=== PATIENT | male | born 1935 | race Caucasian/White ===

== ENCOUNTER 2020-03-05 11:00 | Inpatient (IN) | payer MEDICARE, OTHER ==
[2020-03-05] MEDS ORDERED: HYDROmorphone 0.5 MG/0.5 ML Syringe ONE (11:05)
[2020-03-05] MEDS ORDERED: Sodium Chloride 0.9% 10 ML Syringe FLUSH PRN (11:15)
[2020-03-05] MEDS ORDERED: HYDROmorphone 0.5 MG/0.5 ML Syringe IVPUSH ONE (11:24)
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
--- NOTE | 2020-03-05 12:21 | CR ---
Pelvis and right hip: AP view of the pelvis was obtained as well as AP and crosstable lateral views of the right hip. Fracture is again seen within the proximal diaphysis of the femur with extension into the inferior intertrochanteric region. Lucency within the subcapital region of the right hip and difficult to exclude nondisplaced subcapital fracture. Degenerative change is partially seen within the spine. Left hip prosthesis is noted. Vascular calcification is seen. Joint space narrowing is noted superiorly within the right hip. Impression: 1. Proximal femoral diaphyseal fracture extending into the inferior intertrochanteric area. 2. Questionable subcapital fracture within the right hip. 3. Other nonacute findings as noted above. Diagnostic code #3 This report was dictated in MDT
--- NOTE | 2020-03-05 12:21 | CR ---
Chest: AP view of the chest was obtained. Comparison: No prior chest imaging. Heart size and mediastinum are within normal limits for AP technique. Lungs are clear with no acute parenchymal change. Degenerative change is partially visualized within the left shoulder. Bony structures are osteopenic. Impression: 1. Nothing acute is appreciated on AP chest x-ray. Diagnostic code #2 This report was dictated in MDT
--- NOTE | 2020-03-05 12:21 | CR ---
Right femur: AP and lateral views of the right femur were obtained. Fracture is identified within the proximal diaphysis of the femur with extension into the lower intertrochanteric region. Lucency within the right femoral neck is noted on the AP view and difficult to exclude subcapital fracture. Osteopenia is noted. Left hip prosthesis is seen. Vascular calcification is noted. Knee prosthesis is seen. Joint space narrowing is seen within the superior right hip. Impression: 1. Fracture within the proximal diaphysis extending into the inferior intertrochanteric region. 2. Lucency within the subcapital region of the right hip and difficult to exclude additional subcapital fracture. 3. Other findings which are nonacute as described above. Diagnostic code #3 This report was dictated in MDT
[2020-03-05] MEDS: Sodium Chloride 0.9% 1,000 ML IV SCH ×2 (12:30→19:43)
--- NOTE | 2020-03-05 13:14 | CR ---
Right tibia and fibula: 2 views of the right tibia and fibula were obtained. Knee prosthesis is noted. Bony structures are osteopenic. No acute fracture or other abnormality is appreciated. Impression: 1. Osteopenia. Knee prosthesis. 2. Nothing acute is appreciated on 2 view right tibia and fibula exam. Diagnostic code #2 Study was dictated in MDT
[2020-03-05] MEDS ORDERED: Acetaminophen 650 MG Supp RECTAL PRN (14:48)
[2020-03-05] MEDS ORDERED: Ondansetron 4 MG/2 ML SDV IV PRN (14:48)
[2020-03-05] MEDS ORDERED: Acetaminophen/oxyCODONE 325-5 MG Tab PO PRN (14:48)
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
[2020-03-05] MEDS ORDERED: Albuterol 6.7 GM Inhaler INH PRN (14:56)
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
[2020-03-05] MEDS: Pantoprazole 40 MG Tab.CR PO SCH (18:00)
[2020-03-05] MEDS: HYDROmorphone 0.5 MG/0.5 ML Syringe IVPUSH PRN ×2 (18:07→21:27)
[2020-03-05] MEDS: Insulin Lispro 100 Units/ML 3 ML Vial SUBCUT SCH (18:37)
[2020-03-05] MEDS: Donepezil 10 MG Tab PO SCH (21:18)
[2020-03-05] MEDS: Memantine 10 MG Tab PO SCH (21:18)
[2020-03-05] MEDS: Docusate Sodium 100 MG Cap PO SCH (21:18)
[2020-03-06] MEDS: Hydrochlorothiazide/Triamterene 25-37.5 MG Cap PO SCH ×2 (00:14→12:54)
[2020-03-06] MEDS: Insulin Lispro 100 Units/ML 3 ML Vial SUBCUT SCH ×5 (02:01→21:06)
[2020-03-06] MEDS: Sodium Chloride 0.9% 1,000 ML IV SCH (02:47)
[2020-03-06] MEDS ORDERED: Levothyroxine 75 MCG Tab PO SCH (06:00)
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
[2020-03-06] MEDS: Rosuvastatin 10 MG Tab PO SCH (08:53)
[2020-03-06] MEDS: Memantine 10 MG Tab PO SCH ×2 (08:53→21:01)
[2020-03-06] MEDS: Pantoprazole 40 MG Tab.CR PO SCH ×2 (08:54→17:21)
[2020-03-06] MEDS: Levothyroxine 75 MCG Tab PO SCH (09:00)
[2020-03-06] MEDS ORDERED: Albuterol 0.083% 2.5 MG/3 ML Neb Soln NEB SCH (09:00)
[2020-03-06] MEDS: Docusate Sodium 100 MG Cap PO SCH ×3 (09:01→21:01)
[2020-03-06] MEDS ORDERED: Bupivacaine 0.25% 10 ML SDV ONE (09:12)
[2020-03-06] MEDS ORDERED: fentaNYL 100 MCG/2 ML SDV ONE (09:27)
[2020-03-06] MEDS ORDERED: Propofol 200 MG/20 ML SDV ONE (09:27)
[2020-03-06] MEDS ORDERED: Midazolam 1 MG/ML 2 ML SDV ONE (09:28)
[2020-03-06] MEDS ORDERED: Lidocaine 1% 4 ML ONE (09:29)
[2020-03-06] MEDS ORDERED: ceFAZolin 1 GM Vial ONE (10:24)
[2020-03-06] MEDS ORDERED: Lactated Ringers 1,000 ML ONE (11:02)
[2020-03-06] MEDS ORDERED: Ondansetron 4 MG/2 ML SDV ONE (11:03)
[2020-03-06] MEDS ORDERED: EPINEPHrine 1 MG/ML SDV ONE (11:13)
--- NOTE | 2020-03-06 11:32 | CR ---
Right hip: 10 fluoroscopic spot views were obtained of the right hip. Study shows compression screw within the femoral head. Additional intramedullary tessy is seen. Stable joint space narrowing within the right hip. Fluoroscopy time given as 84.9 seconds. Impression: 1. Procedural study showing fixation of previous fractures. Diagnostic code #2 Study was dictated in MDT
--- NOTE | 2020-03-06 11:34 | PCM.POSTAN ---
POST ANESTHESIA ASSESSMENT - MENTAL STATUS Mental Status: Alert, Oriented - VITAL SIGNS Vital Signs: Last Vital Signs Temp 97.3 F 03/06/20 11:24 Pulse 104 H 03/06/20 11:24 Resp 14 03/06/20 11:24 BP 136/63 03/06/20 11:24 Pulse Ox 98 03/06/20 11:24 - RESPIRATORY Respiratory Status: Respiratory Rate WNL, Airway Patent, O2 Saturation Stable, Supplemental Oxygen - CARDIOVASCULAR CV Status: Pulse Rate WNL, Blood Pressure Stable - GASTROINTESTINAL GI Status: No Symptoms - PAIN Pain Score: 0 (post SAB) - POST OP HYDRATION Hydration Status: Adequate & Stable
--- NOTE | 2020-03-06 12:18 | CONS ---
CONSULTING PHYSICIAN: Nestor Turner MD DATE OF CONSULTATION: 03/05/2020 HISTORY OF PRESENT ILLNESS: This is an 84-year-old gentleman who is well known to me, who today was out doing something with his dumpster, fell on the right side of the concrete and had immediate right hip pain and was unable to ambulate. EMS was called. The patient was taken to Emergency Department where he was found to have a right intertrochanteric fracture with subtrochanteric extension. He denies any other injury. He does have dementia and was somewhat confused in the emergency department. The patient otherwise denied any other injury, previous pain, or problems to the right hip. PHYSICAL EXAMINATION: GENERAL: The patient is alert. He is fairly confused when I talk to him, but he does recognize me. MUSCULOSKELETAL: On examination of right lower extremity, there is no significant rotation or shortening noted. He has no tenderness to palpation about his previous right total knee. There is no effusion. He does have a small area of ecchymosis over the pretibial region on the right side. He has positive pain with a log roll of the right hip. He has full dorsiflexion, plantar flexion, and great toe extension. He is neurovascularly intact to the medial, plantar, first dorsal webspace with 2+ distal dorsalis pedis posterior tibial pulses. PELVIS: Stable to anterior and posterior compression. RADIOGRAPHS: Reviewed showing a nondisplaced intertrochanteric fracture of the right hip with subtrochanteric extension. PLAN: I discussed with both him and his daughter as durable power of pathology technician that this usually does require surgical fixation. If it does not, the patient will be bed bound with significant pain. If we do fixation with a cephalomedullary nail, the patient will begin to weight bear right away and should have significantly less pain with activities. The risks, benefits, complications, and alternatives were discussed with them at today's visit over the phone and then with the patient directly and they agree with the plan. We will proceed with cephalomedullary nailing of the right femur. MMKIKE /[id number]
--- NOTE | 2020-03-06 12:51 | CR ---
Right femur: 2 views of the right femur were obtained. Comparison: Prior operative study performed earlier on the same day (10:57 AM) and baseline exam of 03/05/20. Findings: Proximal femur fracture is again noted. Compression screw and intramedullary tessy is present. Skin timothy are present. Small amount of soft tissue air is noted from the surgical procedure. Knee prosthesis is seen. Joint space narrowing is stable within the superior right hip. Impression: 1. Orthopedic fixation of previous proximal femur fractures. 2. Other findings as noted above which are stable. Diagnostic code #2 This report was dictated in MDT
[2020-03-06] MEDS: Losartan 25 MG Tab PO SCH (12:55)
[2020-03-06] MEDS ORDERED: Magnesium Sulfate/Water 2 GM in Premix Bag 1 BAG IV ONE (15:00)
[2020-03-06] MEDS: ceFAZolin 2 GM in Premix Bag 1 BAG IV SCH (17:30)
[2020-03-06] MEDS: Donepezil 10 MG Tab PO SCH (20:59)
[2020-03-06] MEDS: Acetaminophen/oxyCODONE 325-5 MG Tab PO PRN (21:02)
[2020-03-07] MEDS: ceFAZolin 2 GM in Premix Bag 1 BAG IV SCH ×2 (02:11→10:58)
[2020-03-07] MEDS: Pantoprazole 40 MG Tab.CR PO SCH ×2 (06:42→17:44)
[2020-03-07] MEDS: Levothyroxine 75 MCG Tab PO SCH (06:42)
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
[2020-03-07] MEDS: Insulin Lispro 100 Units/ML 3 ML Vial SUBCUT SCH ×4 (07:43→22:38)
--- NOTE | 2020-03-07 07:53 | PCM48HPAN ---
Post Anesthesia Note - EVALUATION WITHIN 48HRS OF ANESTHETIC Vital Signs in Normal Range: Yes Patient Participated in Evaluation: Yes (limited participation due to being confused) Respiratory Function Stable: Yes Airway Patent: Yes Cardiovascular Function Stable: Yes Hydration Status Stable: Yes Pain Control Satisfactory: Yes Nausea and Vomiting Control Satisfactory: Yes Mental Status Recovered: Yes (patient is back to his preoperative baseline status, still confused. ) Vital Signs: Last Vital Signs Temp 97.5 F 03/07/20 04:04 Pulse 75 03/07/20 04:08 Resp 16 03/07/20 04:04 BP 136/67 03/07/20 04:04 Pulse Ox 95 03/07/20 04:08 - COMMENTS/OBSERVATIONS Free Text/Narrative:: Patient is on postoperative day 1. Stable but still confused - however within the preoperative baseline
[2020-03-07] MEDS ORDERED: Magnesium Sulfate/Water 4 GM in Premix Bag 1 BAG IV ONE (08:54)
[2020-03-07] MEDS: Acetaminophen/oxyCODONE 325-5 MG Tab PO PRN ×2 (08:59→17:42)
[2020-03-07] MEDS: Docusate Sodium 100 MG Cap PO SCH ×2 (08:59→22:37)
[2020-03-07] MEDS: Losartan 25 MG Tab PO SCH (09:00)
[2020-03-07] MEDS: Memantine 10 MG Tab PO SCH ×2 (09:00→22:37)
[2020-03-07] MEDS: Hydrochlorothiazide/Triamterene 25-37.5 MG Cap PO SCH (09:00)
[2020-03-07] MEDS: Rosuvastatin 10 MG Tab PO SCH (09:00)
[2020-03-07] MEDS: Rivaroxaban 10 MG Tab PO SCH (10:27)
--- NOTE | 2020-03-07 12:11 | PCM.SURGPN ---
- General Info Date of Service: 03/07/20 POD#: 1 Functional Status: Reports: Pain Controlled, Tolerating Diet, Other (Nursing states pt was able to stand and moved to chair. Nursing reports urinary retention and Hospitalist service is monitoring.) - Patient Data Vitals - Most Recent: Last Vital Signs Temp 97.7 F 03/07/20 12:04 Pulse 60 03/07/20 12:04 Resp 15 03/07/20 12:04 BP 158/76 H 03/07/20 12:04 Pulse Ox 94 L 03/07/20 12:04 Weight - Most Recent: 178 lb I&O - Last 24 Hours: Intake & Output 03/06/20 03/07/20 03/07/20 22:59 06:59 14:59 Intake Total 785 150 240 Output Total 600 Balance 785 -450 240 Lab Results Last 24 Hrs: Laboratory Results - last 24 hr 03/06/20 03/06/20 03/06/20 Range/Units 12:58 16:56 20:25 WBC (4.23-9.07) K/mm3 RBC (4.63-6.08) M/mm3 Hgb (13.7-17.5) gm/dl Hct (40.1-51.0) % MCV (79.0-92.2) fl MCH (25.7-32.2) pg MCHC (32.2-35.5) g/dl RDW Std Deviation (35.1-43.9) fL Plt Count (163-337) K/mm3 MPV (9.4-12.3) fl Neut % (Auto) (34.0-67.9) % Lymph % (Auto) (21.8-53.1) % [place] % (Auto) (5.3-12.2) % Eos % (Auto) (0.8-7.0) Baso % (Auto) (0.1-1.2) % Neut # (Auto) (1.78-5.38) K/mm3 Lymph # (Auto) (1.32-3.57) K/mm3 [place] # (Auto) (0.30-0.82) K/mm3 Eos # (Auto) (0.04-0.54) K/mm3 Baso # (Auto) (0.01-0.08) K/mm3 Manual Slide Review Sodium (136-145) mEq/L Potassium (3.5-5.1) mEq/L Chloride (98-107) mEq/L Carbon Dioxide (21-32) mEq/L Anion Gap (5-15) BUN (7-18) mg/dL Creatinine (0.7-1.3) mg/dL Est Cr Clr Drug Dosing mL/min Estimated GFR (MDRD) (>60) mL/min BUN/Creatinine Ratio (14-18) Glucose (83-115) mg/dL POC Glucose 138 H 133 H 207 H (83-110) mg/dL Calcium (8.5-10.1) mg/dL Magnesium (1.8-2.4) mg/dl Total Bilirubin (0.2-1.0) mg/dL AST (15-37) U/L ALT (16-63) U/L Alkaline Phosphatase (46-116) U/L Total Protein (6.4-8.2) g/dl Albumin (3.4-5.0) g/dl Globulin gm/dL Albumin/Globulin Ratio (1-2) 03/07/20 03/07/20 03/07/20 Range/Units 06:39 06:40 06:42 WBC 9.05 (4.23-9.07) K/mm3 RBC 3.79 L (4.63-6.08) M/mm3 Hgb 10.8 L (13.7-17.5) gm/dl Hct 33.8 L (40.1-51.0) % MCV 89.2 (79.0-92.2) fl MCH 28.5 (25.7-32.2) pg MCHC 32.0 L (32.2-35.5) g/dl RDW Std Deviation 42.0 (35.1-43.9) fL Plt Count 109 L (163-337) K/mm3 MPV 12.2 (9.4-12.3) fl Neut % (Auto) 65.4 (34.0-67.9) % Lymph % (Auto) 15.9 L (21.8-53.1) % [place] % (Auto) 17.3 H (5.3-12.2) % Eos % (Auto) 0.9 (0.8-7.0) Baso % (Auto) 0.3 (0.1-1.2) % Neut # (Auto) 5.91 H (1.78-5.38) K/mm3 Lymph # (Auto) 1.44 (1.32-3.57) K/mm3 [place] # (Auto) 1.57 H (0.30-0.82) K/mm3 Eos # (Auto) 0.08 (0.04-0.54) K/mm3 Baso # (Auto) 0.03 (0.01-0.08) K/mm3 Manual Slide Review Normal smear Sodium 142 (136-145) mEq/L Potassium 5.0 (3.5-5.1) mEq/L Chloride 109 H (98-107) mEq/L Carbon Dioxide 23 (21-32) mEq/L Anion Gap 15.0 (5-15) BUN 22 H (7-18) mg/dL Creatinine 1.5 H (0.7-1.3) mg/dL Est Cr Clr Drug Dosing 40.24 mL/min Estimated GFR (MDRD) 45 (>60) mL/min BUN/Creatinine Ratio 14.7 (14-18) Glucose 158 H (83-115) mg/dL POC Glucose 144 H (83-110) mg/dL Calcium 8.3 L (8.5-10.1) mg/dL Magnesium 1.7 L (1.8-2.4) mg/dl Total Bilirubin 0.6 (0.2-1.0) mg/dL AST 18 (15-37) U/L ALT 17 (16-63) U/L Alkaline Phosphatase 91 (46-116) U/L Total Protein 5.9 L (6.4-8.2) g/dl Albumin 2.6 L (3.4-5.0) g/dl Globulin 3.3 gm/dL Albumin/Globulin Ratio 0.8 L (1-2) Med Orders - Current: Current Medications Acetaminophen (Tylenol) 650 mg RECTAL Q4H PRN PRN Reason: Pain (mild 1-3) Albuterol (Proventil Hfa) 0 gm INH Q4H PRN PRN Reason: Dyspnea Docusate Sodium (Colace) 100 mg PO BID [facility] Last Admin: 03/07/20 08:59 Dose: 100 mg Donepezil HCl (Aricept) 5 mg PO BEDTIME [facility] Last Admin: 03/06/20 20:59 Dose: 5 mg Hydromorphone HCl (Dilaudid) 0.5 mg IVPUSH Q2H PRN PRN Reason: Pain (severe 7-10) Last Admin: 03/05/20 21:27 Dose: 0.5 mg Sodium Chloride (Normal Saline) 1,000 mls @ 150 mls/hr IV ASDIRECTED [facility] Last Admin: 03/06/20 02:47 Dose: 150 mls/hr Magnesium Sulfate 4 gm/ Premix 50 mls @ 12.5 mls/hr IV ONETIME ONE Stop: 03/07/20 12:53 Last Admin: 03/07/20 10:59 Dose: 12.5 mls/hr Insulin Human Lispro (Humalog) 0 unit SUBCUT QIDACANDBED [facility]; Protocol Last Admin: 03/07/20 11:49 Dose: 2 units Levothyroxine Sodium (Levothyroxine) 75 mcg PO ACBREAKFAST [facility] Last Admin: 03/07/20 06:42 Dose: 75 mcg Losartan Potassium (Cozaar) 25 mg PO DAILY [facility] Last Admin: 03/07/20 09:00 Dose: 25 mg Memantine (Namenda) 10 mg PO BID [facility] Last Admin: 03/07/20 09:00 Dose: 10 mg Ondansetron HCl (Zofran) 4 mg IV Q6H PRN PRN Reason: Nausea/Vomiting Oxycodone/Acetaminophen (Percocet 325-5 Mg) 1 - 2 tab PO Q4H PRN PRN Reason: Pain (moderate 4-6) Last Admin: 03/07/20 08:59 Dose: 2 tab Pantoprazole Sodium (Protonix) 40 mg PO BIDMEALS [facility] Last Admin: 03/07/20 06:42 Dose: 40 mg Rivaroxaban (Xarelto) 10 mg PO DAILY [facility] Last Admin: 03/07/20 10:27 Dose: 10 mg Rosuvastatin Calcium (Crestor) 20 mg PO DAILY [facility] Last Admin: 03/07/20 09:00 Dose: 20 mg Sodium Chloride (Saline Flush) 10 ml FLUSH ASDIRECTED PRN PRN Reason: Keep Vein Open Last Admin: 03/05/20 11:26 Dose: 10 ml Triamterene/HCTZ (Dyazide 25-37.5 Mg) 1 each PO DAILY [facility] Last Admin: 03/07/20 09:00 Dose: 1 each Discontinued Medications Albuterol (Proventil Neb Soln) 2.5 mg NEB ONETIME [facility] Stop: 03/06/20 11:00 Last Admin: 03/06/20 09:20 Dose: 2.5 mg Bupivacaine HCl (Sensorcaine-Mpf 0.25%) Confirm Administered Dose 30 ml .ROUTE .STK-MED ONE Stop: 03/06/20 09:13 Last Admin: 03/06/20 09:48 Dose: 10 ml Cefazolin Sodium (Ancef) Confirm Administered Dose 2 gm .ROUTE .STK-MED ONE Stop: 03/06/20 10:25 Epinephrine HCl (Adrenalin) Confirm Administered Dose 1 mg .ROUTE .STK-MED ONE Stop: 03/06/20 11:14 Fentanyl (Sublimaze) Confirm Administered Dose 100 mcg .ROUTE .STK-MED ONE Stop: 03/06/20 09:28 Hydromorphone HCl (Dilaudid) Confirm Administered Dose 0.5 mg .ROUTE .STK-MED ONE Stop: 03/05/20 11:06 Last Admin: 03/05/20 11:25 Dose: Not Given Hydromorphone HCl (Dilaudid) 0.5 mg IVPUSH ONETIME ONE Stop: 03/05/20 11:25 Last Admin: 03/05/20 11:11 Dose: 0.5 mg Cefazolin Sodium/Dextrose 2 gm (/ Premix) 50 mls @ 100 mls/hr IV Q8H [facility] Stop: 03/07/20 10:59 Last Admin: 03/07/20 10:58 Dose: 100 mls/hr Lidocaine HCl (Xylocaine-Mpf 1%) Confirm Administered Dose 4 mls @ as directed .ROUTE .STK-MED ONE Stop: 03/06/20 09:30 Magnesium Sulfate 2 gm/ Premix 50 mls @ 25 mls/hr IV ONETIME ONE Stop: 03/06/20 16:59 Last Admin: 03/06/20 14:47 Dose: 25 mls/hr Lactated Ringer's (Ringers, Lactated) Confirm Administered Dose 1,000 mls @ as directed .ROUTE .STK-MED ONE Stop: 03/06/20 11:03 Levothyroxine Sodium (Levothyroxine) 75 mcg PO ACBREAKFAST [facility] Last Admin: 03/07/20 08:05 Dose: Not Given Midazolam HCl (Versed 1 Mg/Ml) Confirm Administered Dose 2 mg .ROUTE .STK-MED ONE Stop: 03/06/20 09:29 Miscellaneous Medication (Phenylephrine 1 Mg/10 Ml-Ns) Confirm Administered Dose 1 mg IV .STK-MED ONE Stop: 03/06/20 10:58 Ondansetron HCl (Zofran) Confirm Administered Dose 4 mg .ROUTE .STK-MED ONE Stop: 03/06/20 11:04 Oxycodone/Acetaminophen (Percocet 325-5 Mg) 1 tab PO Q4H PRN PRN Reason: Pain (moderate 4-6) Last Admin: 03/06/20 14:49 Dose: 1 tab Propofol (Diprivan 20 Ml) Confirm Administered Dose 400 mg .ROUTE .STK-MED ONE Stop: 03/06/20 09:28 - Exam Wound/Incisions: Dressing Dry and Intact General: Alert, Cooperative, Other (Answered questions. ) Extremities: Other (Right thigh soft, nontender. Pt was able to sense light touch at RLE. Portia's negative for RLE.) Sepsis Event Note - Evaluation Sepsis Screening Result: No Definite Risk - Focused Exam Vital Signs: Vital Signs Temp Pulse Resp BP Pulse Ox 03/07/20 12:04 97.7 F 60 15 158/76 H 94 L 03/07/20 09:00 140/53 L 03/07/20 07:58 98.1 F 61 17 140/53 L 96 03/07/20 04:08 75 95 03/07/20 04:04 97.5 F 132 H 16 136/67 95 03/07/20 01:22 84 100 03/07/20 00:28 84 100 03/07/20 00:26 98.4 F 82 16 186/57 H 94 L Date Exam was Performed: 03/07/20 Time Exam was Performed: 12:07 - Problem List Review Problem List Initiated/Reviewed/Updated: Yes - My Orders Last 24 Hours: Active Orders 24 hr Category Date Time Status CBC WITH AUTO DIFF [HEME] AM Lab 03/08/20 05:11 Ordered CBC WITH AUTO DIFF [HEME] AM Lab 03/09/20 05:11 Ordered CMP [COMPREHENSIVE METABOLIC PN,CMP] [CHEM] AM Lab 03/08/20 05:11 Ordered CMP [COMPREHENSIVE METABOLIC PN,CMP] [CHEM] AM Lab 03/09/20 05:11 Ordered MAGNESIUM [CHEM] AM Lab 03/08/20 05:11 Ordered MAGNESIUM [CHEM] AM Lab 03/09/20 05:11 Ordered Acetaminophen/oxyCODONE [Percocet 325-5 MG] Med 03/06/20 17:58 Active 1 - 2 tab PO Q4H PRN Magnesium Sulfate/Water [Magnesium Sulfate in Water Med 03/07/20 08:54 Active Premix] 4 gm Premix Bag 1 bag IV ONETIME Rivaroxaban [Xarelto] Med 03/07/20 09:30 Active 10 mg PO DAILY Weight bearing status [OM.PC] Routine Oth 03/06/20 11:26 Ordered Medication Orders Acetaminophen (Tylenol) 650 mg RECTAL Q4H PRN PRN Reason: Pain (mild 1-3) Albuterol (Proventil Hfa) 0 gm INH Q4H PRN PRN Reason: Dyspnea Docusate Sodium (Colace) 100 mg PO BID [facility] Last Admin: 03/07/20 08:59 Dose: 100 mg Admin: 03/06/20 21:01 Dose: 100 mg Admin: 03/06/20 12:54 Dose: 100 mg Admin: 03/06/20 09:01 Dose: Admin: 03/05/20 21:18 Dose: 100 mg Donepezil HCl (Aricept) 5 mg PO BEDTIME [facility] Last Admin: 03/06/20 20:59 Dose: 5 mg Admin: 03/05/20 21:18 Dose: 5 mg Hydromorphone HCl (Dilaudid) 0.5 mg IVPUSH Q2H PRN PRN Reason: Pain (severe 7-10) Last Admin: 03/05/20 21:27 Dose: 0.5 mg Admin: 03/05/20 18:07 Dose: 0.5 mg Sodium Chloride (Normal Saline) 1,000 mls @ 150 mls/hr IV ASDIRECTED [facility] Last Admin: 03/06/20 02:47 Dose: 150 mls/hr Infusion: 03/06/20 02:38 Dose: 150 mls/hr Admin: 03/05/20 19:43 Dose: 150 mls/hr Infusion: 03/05/20 19:11 Dose: 150 mls/hr Admin: 03/05/20 12:30 Dose: 150 mls/hr Magnesium Sulfate 4 gm/ Premix 50 mls @ 12.5 mls/hr IV ONETIME ONE Stop: 03/07/20 12:53 Last Admin: 03/07/20 10:59 Dose: 12.5 mls/hr Insulin Human Lispro (Humalog) 0 unit SUBCUT QIDACANDBED [facility]; Protocol Last Admin: 03/07/20 11:49 Dose: 2 units Admin: 03/07/20 07:43 Dose: Not Given Admin: 03/06/20 21:06 Dose: 2 units Admin: 03/06/20 17:16 Dose: Not Given Admin: 03/06/20 13:00 Dose: Not Given Admin: 03/06/20 08:55 Dose: Not Given Admin: 03/06/20 02:01 Dose: Not Given Admin: 03/05/20 18:37 Dose: Not Given Levothyroxine Sodium (Levothyroxine) 75 mcg PO ACBREAKFAST [facility] Last Admin: 03/07/20 06:42 Dose: 75 mcg Admin: 03/06/20 09:00 Dose: 75 mcg Losartan Potassium (Cozaar) 25 mg PO DAILY [facility] Last Admin: 03/07/20 09:00 Dose: 25 mg Admin: 03/06/20 12:55 Dose: 25 mg Memantine (Namenda) 10 mg PO BID [facility] Last Admin: 03/07/20 09:00 Dose: 10 mg Admin: 03/06/20 21:01 Dose: 10 mg Admin: 03/06/20 08:53 Dose: 10 mg Admin: 03/05/20 21:18 Dose: 10 mg Ondansetron HCl (Zofran) 4 mg IV Q6H PRN PRN Reason: Nausea/Vomiting Oxycodone/Acetaminophen (Percocet 325-5 Mg) 1 - 2 tab PO Q4H PRN PRN Reason: Pain (moderate 4-6) Last Admin: 03/07/20 08:59 Dose: 2 tab Admin: 03/06/20 21:02 Dose: 2 tab Pantoprazole Sodium (Protonix) 40 mg PO BIDMEALS [facility] Last Admin: 03/07/20 06:42 Dose: 40 mg Admin: 03/06/20 17:21 Dose: 40 mg Admin: 03/06/20 08:54 Dose: 40 mg Admin: 03/05/20 18:00 Dose: 40 mg Rivaroxaban (Xarelto) 10 mg PO DAILY [facility] Last Admin: 03/07/20 10:27 Dose: 10 mg Rosuvastatin Calcium (Crestor) 20 mg PO DAILY [facility] Last Admin: 03/07/20 09:00 Dose: 20 mg Admin: 03/06/20 08:53 Dose: 20 mg Sodium Chloride (Saline Flush) 10 ml FLUSH ASDIRECTED PRN PRN Reason: Keep Vein Open Last Admin: 03/05/20 11:26 Dose: 10 ml Triamterene/HCTZ (Dyazide 25-37.5 Mg) 1 each PO DAILY [facility] Last Admin: 03/07/20 09:00 Dose: 1 each Admin: 03/06/20 12:54 Dose: 1 each Admin: 03/06/20 00:14 Dose: 1 each - Assessment Assessment (Free Text/Narrative):: POD#1 - s/p cephalomedullary tessy placement for right hip fracture - Plan Plan (Free Text/Narrative):: 1. Nursing states pt's family would like pt to d/c to home. Possible [facility] discharge if pt requires additional rehab. 2. Xarelto 10mg PO daily for VTE prophylaxis. This was discussed with Hospitalist service and pharmacy. 3. Mobility as able. WBAT RLE. The pt's case was discussed with Dr. Turner.
--- NOTE | 2020-03-07 13:53 | PCM.OPNOTE ---
- General Post-Op/Procedure Note Date of Surgery/Procedure: 03/06/20 Operative Procedure(s): cephalomedullary nailing of right intertrochanteric hip fracture with subtrochanteric extension Pre Op Diagnosis: right intertrochanteric hip fracture with subtrochanteric extension Post-Op Diagnosis: Same Anesthesia Technique: Local, MAC, Spinal Primary Surgeon: Nestor Turner Anesthesia Provider: Danny Rios Primary Therapist: Mayra Chew EBL in mLs: 20 Complications: None Condition: Good Free Text/Narrative:: Intake & Output 03/06/20 03/07/20 03/07/20 22:59 06:59 14:59 Intake Total 785 150 240 Output Total 600 Balance 785 -450 240
--- NOTE | 2020-03-07 14:29 | OR ---
DATE OF OPERATION: 03/06/2020 SURGEON: Nestor Turner MD OPERATION PERFORMED: Cephalomedullary nailing of right intertrochanteric hip fracture with subtrochanteric extension. PREOPERATIVE DIAGNOSIS: Right intertrochanteric hip fracture with subtrochanteric extension. POSTOPERATIVE DIAGNOSIS: Right intertrochanteric hip fracture with subtrochanteric extension. ANESTHESIA: Local MAC with spinal. ANESTHESIA PROVIDER: Flaquita Cooper. [employer] SUPERVISOR: Mayra Chew PA-C. ESTIMATED BLOOD LOSS: 20 mL. COMPLICATIONS: None. CONDITION: Stable. DESCRIPTION OF PROCEDURE: The patient was identified in the preoperative holding area where proper site was marked, identified by the surgeon. The patient was taken back to the operating theater where after adequate anesthesia, the patient was placed in traction boots and was placed on the traction table. PEG was then placed. All bony prominences were well padded. His right lower extremity had just gross traction applied, no fine traction. The left lower extremity had no traction applied. It was placed in a dependent position. The right hip was then sterilely prepped and draped in the usual sterile fashion. OR time-out was performed. The patient received 2 g IV Ancef. Standard incision was made superior to the greater trochanter. This was taken down through to the IT band and gluteal fascia. Guidepin was then placed in a center-center position of the greater trochanter, and the opening reamer was used for a long Driss gamma nail. Guide wire was then placed all the way down distally to the knee joint, stopping just at the flange of the femoral component. It measured a 400. At this time, I did a reamer size 13 down the shaft and was found to have good cortical chatter. A long gamma nail 400 x 11 was then placed under direct C-arm fluoroscopy. The fracture site was anatomically reduced. I then placed the gamma nail to the point where the guide pin could be placed up into the femoral head for the lag screw. This measured a 100. At this time, the step-reamer was then used up to 100, and the 100 mm lag screw was then placed into the head and neck. The set screw was then placed proximally, and attention was turned distally to perfect circles for 2 static interlock screws distally in the nail. Perfect circles were identified, and then the proximal and then distal screw holes had bicortical screws placed in static fashion. They were found to be an adequate position on both AP and lateral views of fluoroscopy distally. Final films were taken at the hip joint showing the anatomic reduction of the subtrochanteric fracture, and all screws were well placed. Adequate saline was irrigated through all wounds. 2-0 Vicryl was used subcutaneously, 0 Vicryl was used for the IT band and gluteal fascia, and timothy were used for the skin. The patient was placed in a sterile soft dressing and sent to PACU in stable condition. LINDA /[id number]
[2020-03-07] MEDS ORDERED: Tamsulosin 0.4 MG Cap.ER PO ONE (17:30)
[2020-03-07] MEDS: Donepezil 10 MG Tab PO SCH (22:38)
[2020-03-08] MEDS: Acetaminophen/oxyCODONE 325-5 MG Tab PO PRN ×3 (01:23→21:31)
[2020-03-08] MEDS: Levothyroxine 75 MCG Tab PO SCH (06:33)
[2020-03-08] MEDS: Pantoprazole 40 MG Tab.CR PO SCH ×2 (06:35→17:43)
[2020-03-08] MEDS: Hydrochlorothiazide/Triamterene 25-37.5 MG Cap PO SCH (08:10)
[2020-03-08] MEDS: Losartan 25 MG Tab PO SCH (08:10)
[2020-03-08] MEDS: Docusate Sodium 100 MG Cap PO SCH ×2 (08:10→21:31)
[2020-03-08] MEDS: Memantine 10 MG Tab PO SCH ×2 (08:12→21:30)
[2020-03-08] MEDS: Rivaroxaban 10 MG Tab PO SCH (08:12)
[2020-03-08] MEDS: Rosuvastatin 10 MG Tab PO SCH (08:12)
[2020-03-08] MEDS: Insulin Lispro 100 Units/ML 3 ML Vial SUBCUT SCH ×4 (08:12→21:33)
[2020-03-08] MEDS: Tamsulosin 0.4 MG Cap.ER PO SCH (10:00)
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
[2020-03-08] MEDS ORDERED: Magnesium Hydroxide 400 MG/5 ML Susp 30 ML Cup PO ONE (17:30)
[2020-03-08] MEDS: Donepezil 10 MG Tab PO SCH (21:30)
[2020-03-09] MEDS: Pantoprazole 40 MG Tab.CR PO SCH ×2 (06:32→17:48)
[2020-03-09] MEDS: Levothyroxine 75 MCG Tab PO SCH (06:32)
[2020-03-09] MEDS: Insulin Lispro 100 Units/ML 3 ML Vial SUBCUT SCH ×4 (08:44→21:54)
[2020-03-09] MEDS: Rosuvastatin 10 MG Tab PO SCH (08:45)
[2020-03-09] MEDS: Acetaminophen/oxyCODONE 325-5 MG Tab PO PRN ×2 (08:45→14:28)
[2020-03-09] MEDS: Memantine 10 MG Tab PO SCH ×2 (08:45→21:52)
[2020-03-09] MEDS: Losartan 25 MG Tab PO SCH (08:45)
[2020-03-09] MEDS: Docusate Sodium 100 MG Cap PO SCH ×2 (08:45→21:52)
[2020-03-09] MEDS: Hydrochlorothiazide/Triamterene 25-37.5 MG Cap PO SCH (08:46)
[2020-03-09] MEDS: Rivaroxaban 10 MG Tab PO SCH (08:46)
[2020-03-09] MEDS: Tamsulosin 0.4 MG Cap.ER PO SCH ×2 (08:47→09:29)
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
[2020-03-09] MEDS ORDERED: Bisacodyl 10 MG Supp RECTAL ONE (21:00)
[2020-03-09] MEDS: Donepezil 10 MG Tab PO SCH (21:52)
[2020-03-09] MEDS: Insulin Glarg,Human.Rec.Analog 100 Unit/ML SUBCUT SCH (21:52)
[2020-03-10] MEDS ORDERED: Acetaminophen 325 MG Tab PO PRN (02:27)
[2020-03-10] MEDS: Pantoprazole 40 MG Tab.CR PO SCH ×2 (06:36→17:44)
[2020-03-10] MEDS: Levothyroxine 75 MCG Tab PO SCH (06:36)
[2020-03-10] MEDS: Insulin Lispro 100 Units/ML 3 ML Vial SUBCUT SCH ×4 (08:44→21:21)
[2020-03-10] MEDS: Docusate Sodium 100 MG Cap PO SCH ×2 (09:07→21:25)
[2020-03-10] MEDS: Rosuvastatin 10 MG Tab PO SCH (09:07)
[2020-03-10] MEDS: Tamsulosin 0.4 MG Cap.ER PO SCH (09:08)
[2020-03-10] MEDS: Losartan 25 MG Tab PO SCH (09:08)
[2020-03-10] MEDS: Hydrochlorothiazide/Triamterene 25-37.5 MG Cap PO SCH (09:08)
[2020-03-10] MEDS: Rivaroxaban 10 MG Tab PO SCH (09:08)
[2020-03-10] MEDS: Memantine 10 MG Tab PO SCH ×2 (09:08→21:25)
[2020-03-10] MEDS ORDERED: Lactated Ringers 500 ML IV ONE (09:09)
[2020-03-10] MEDS ORDERED: Lactated Ringers 1,000 ML ONE (09:15)
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
[2020-03-10] MEDS ORDERED: Lactated Ringers 1,000 ML IV SCH ×2 (11:00→11:30)
--- NOTE | 2020-03-10 11:20 | PCM.SURGPN ---
- General Info Date of Service: 03/10/20 POD#: 4 Functional Status: Reports: Pain Controlled, Tolerating Diet, Other ( Hospitalist service reports hypotension noted. Suspect d/c to [facility] tomorrow.) - Patient Data Vitals - Most Recent: Last Vital Signs Temp 97.5 F 03/10/20 02:35 Pulse 91 03/10/20 02:35 Resp 16 03/10/20 02:35 BP 88/43 L 03/10/20 09:08 Pulse Ox 94 L 03/10/20 02:35 Weight - Most Recent: 180 lb 4.8 oz I&O - Last 24 Hours: Intake & Output 03/09/20 03/10/20 03/10/20 22:59 06:59 14:59 Intake Total 800 200 240 Output Total 850 Balance 800 -650 240 Lab Results Last 24 Hrs: Laboratory Results - last 24 hr 03/08/20 03/09/20 03/09/20 Range/Units 11:40 17:44 21:50 WBC (4.23-9.07) K/mm3 RBC (4.63-6.08) M/mm3 Hgb (13.7-17.5) gm/dl Hct (40.1-51.0) % MCV (79.0-92.2) fl MCH (25.7-32.2) pg MCHC (32.2-35.5) g/dl RDW Std Deviation (35.1-43.9) fL Plt Count (163-337) K/mm3 MPV (9.4-12.3) fl Neut % (Auto) (34.0-67.9) % Lymph % (Auto) (21.8-53.1) % [place] % (Auto) (5.3-12.2) % Eos % (Auto) (0.8-7.0) Baso % (Auto) (0.1-1.2) % Neut # (Auto) (1.78-5.38) K/mm3 Lymph # (Auto) (1.32-3.57) K/mm3 [place] # (Auto) (0.30-0.82) K/mm3 Eos # (Auto) (0.04-0.54) K/mm3 Baso # (Auto) (0.01-0.08) K/mm3 Sodium (136-145) mEq/L Potassium (3.5-5.1) mEq/L Chloride (98-107) mEq/L Carbon Dioxide (21-32) mEq/L Anion Gap (5-15) BUN (7-18) mg/dL Creatinine (0.7-1.3) mg/dL Est Cr Clr Drug Dosing mL/min Estimated GFR (MDRD) (>60) mL/min BUN/Creatinine Ratio (14-18) Glucose (83-115) mg/dL POC Glucose 245 H 306 H (83-110) mg/dL Calcium (8.5-10.1) mg/dL Magnesium (1.8-2.4) mg/dl Total Bilirubin (0.2-1.0) mg/dL AST (15-37) U/L ALT (16-63) U/L Alkaline Phosphatase (46-116) U/L Troponin I (0.00-0.056) ng/mL Total Protein (6.4-8.2) g/dl Albumin (3.4-5.0) g/dl Globulin gm/dL Albumin/Globulin Ratio (1-2) COVID-19 PCR Not detected (NOT DETECT) 03/10/20 03/10/20 Range/Units 09:35 09:35 WBC 11.33 H (4.23-9.07) K/mm3 RBC 3.47 L (4.63-6.08) M/mm3 Hgb 10.0 L (13.7-17.5) gm/dl Hct 31.0 L (40.1-51.0) % MCV 89.3 (79.0-92.2) fl MCH 28.8 (25.7-32.2) pg MCHC 32.3 (32.2-35.5) g/dl RDW Std Deviation 40.9 (35.1-43.9) fL Plt Count 177 (163-337) K/mm3 MPV 10.8 (9.4-12.3) fl Neut % (Auto) 78.2 H (34.0-67.9) % Lymph % (Auto) 10.8 L (21.8-53.1) % [place] % (Auto) 9.9 (5.3-12.2) % Eos % (Auto) 0.6 L (0.8-7.0) Baso % (Auto) 0.3 (0.1-1.2) % Neut # (Auto) 8.87 H (1.78-5.38) K/mm3 Lymph # (Auto) 1.22 L (1.32-3.57) K/mm3 [place] # (Auto) 1.12 H (0.30-0.82) K/mm3 Eos # (Auto) 0.07 (0.04-0.54) K/mm3 Baso # (Auto) 0.03 (0.01-0.08) K/mm3 Sodium 136 (136-145) mEq/L Potassium 5.4 H (3.5-5.1) mEq/L Chloride 103 (98-107) mEq/L Carbon Dioxide 24 (21-32) mEq/L Anion Gap 14.4 (5-15) BUN 40 H (7-18) mg/dL Creatinine 2.0 H (0.7-1.3) mg/dL Est Cr Clr Drug Dosing 30.18 mL/min Estimated GFR (MDRD) 32 (>60) mL/min BUN/Creatinine Ratio 20.0 H (14-18) Glucose 243 H (83-115) mg/dL POC Glucose (83-110) mg/dL Calcium 9.0 (8.5-10.1) mg/dL Magnesium 1.8 (1.8-2.4) mg/dl Total Bilirubin 0.9 (0.2-1.0) mg/dL AST 22 (15-37) U/L ALT 21 (16-63) U/L Alkaline Phosphatase 99 (46-116) U/L Troponin I < 0.017 (0.00-0.056) ng/mL Total Protein 6.0 L (6.4-8.2) g/dl Albumin 2.5 L (3.4-5.0) g/dl Globulin 3.5 gm/dL Albumin/Globulin Ratio 0.7 L (1-2) COVID-19 PCR (NOT DETECT) Med Orders - Current: Current Medications Acetaminophen (Tylenol) 650 mg RECTAL Q4H PRN PRN Reason: Pain (mild 1-3) Acetaminophen (Tylenol) 650 mg PO Q4H PRN PRN Reason: Pain Last Admin: 03/10/20 02:49 Dose: 650 mg Albuterol (Proventil Hfa) 0 gm INH Q4H PRN PRN Reason: Dyspnea Docusate Sodium (Colace) 100 mg PO BID ON LICENSE OF [facility] Last Admin: 03/10/20 09:07 Dose: 100 mg Donepezil HCl (Aricept) 5 mg PO BEDTIME ON LICENSE OF [facility] Last Admin: 03/09/20 21:52 Dose: 5 mg Hydrochlorothiazide (Hydrochlorothiazide) 25 mg PO DAILY ON LICENSE OF [facility] Hydromorphone HCl (Dilaudid) 0.5 mg IVPUSH Q2H PRN PRN Reason: Pain (severe 7-10) Last Admin: 03/05/20 21:27 Dose: 0.5 mg Lactated Ringer's (Ringers, Lactated) 1,000 mls @ 75 mls/hr IV ASDIRECTED ON LICENSE OF [facility] Insulin Glargine (Lantus) 7 unit SUBCUT BEDTIME ON LICENSE OF [facility] Last Admin: 03/09/20 21:52 Dose: 7 units Insulin Human Lispro (Humalog) 0 unit SUBCUT QIDACANDBED ON LICENSE OF [facility]; Protocol Last Admin: 03/10/20 08:44 Dose: 1 units Levothyroxine Sodium (Levothyroxine) 75 mcg PO ACBREAKFAST ON LICENSE OF [facility] Last Admin: 03/10/20 06:36 Dose: 75 mcg Losartan Potassium (Cozaar) 25 mg PO DAILY ON LICENSE OF [facility] Last Admin: 03/10/20 09:08 Dose: Not Given Memantine (Namenda) 10 mg PO BID ON LICENSE OF [facility] Last Admin: 03/10/20 09:08 Dose: 10 mg Ondansetron HCl (Zofran) 4 mg IV Q6H PRN PRN Reason: Nausea/Vomiting Oxycodone/Acetaminophen (Percocet 325-5 Mg) 1 - 2 tab PO Q4H PRN PRN Reason: Pain (moderate 4-6) Last Admin: 03/09/20 14:28 Dose: 2 tab Pantoprazole Sodium (Protonix) 40 mg PO BIDMEALS ON LICENSE OF [facility] Last Admin: 03/10/20 06:36 Dose: 40 mg Rivaroxaban (Xarelto) 10 mg PO DAILY ON LICENSE OF [facility] Last Admin: 03/10/20 09:08 Dose: 10 mg Rosuvastatin Calcium (Crestor) 20 mg PO DAILY ON LICENSE OF [facility] Last Admin: 03/10/20 09:07 Dose: 20 mg Sodium Chloride (Saline Flush) 10 ml FLUSH ASDIRECTED PRN PRN Reason: Keep Vein Open Last Admin: 03/05/20 11:26 Dose: 10 ml Tamsulosin HCl (Flomax) 0.4 mg PO PCBREAKFAST ON LICENSE OF [facility] Last Admin: 03/10/20 09:08 Dose: 0.4 mg Discontinued Medications Albuterol (Proventil Neb Soln) 2.5 mg NEB ONETIME ARNIE Stop: 03/06/20 11:00 Last Admin: 03/06/20 09:20 Dose: 2.5 mg Bisacodyl (Dulcolax) 10 mg RECTAL ONETIME ONE Stop: 03/09/20 21:01 Last Admin: 03/09/20 21:52 Dose: 10 mg Bupivacaine HCl (Sensorcaine-Mpf 0.25%) Confirm Administered Dose 30 ml .ROUTE .STK-MED ONE Stop: 03/06/20 09:13 Last Admin: 03/06/20 09:48 Dose: 10 ml Cefazolin Sodium (Ancef) Confirm Administered Dose 2 gm .ROUTE .STK-MED ONE Stop: 03/06/20 10:25 Epinephrine HCl (Adrenalin) Confirm Administered Dose 1 mg .ROUTE .STK-MED ONE Stop: 03/06/20 11:14 Fentanyl (Sublimaze) Confirm Administered Dose 100 mcg .ROUTE .STK-MED ONE Stop: 03/06/20 09:28 Hydromorphone HCl (Dilaudid) Confirm Administered Dose 0.5 mg .ROUTE .STK-MED ONE Stop: 03/05/20 11:06 Last Admin: 03/05/20 11:25 Dose: Not Given Hydromorphone HCl (Dilaudid) 0.5 mg IVPUSH ONETIME ONE Stop: 03/05/20 11:25 Last Admin: 03/05/20 11:11 Dose: 0.5 mg Sodium Chloride (Normal Saline) 1,000 mls @ 150 mls/hr IV ASDIRECTED ARNIE Last Admin: 03/06/20 02:47 Dose: 150 mls/hr Cefazolin Sodium/Dextrose 2 gm (/ Premix) 50 mls @ 100 mls/hr IV Q8H ON LICENSE OF [facility] Stop: 03/07/20 10:59 Last Admin: 03/07/20 10:58 Dose: 100 mls/hr Lidocaine HCl (Xylocaine-Mpf 1%) Confirm Administered Dose 4 mls @ as directed .ROUTE .STK-MED ONE Stop: 03/06/20 09:30 Magnesium Sulfate 2 gm/ Premix 50 mls @ 25 mls/hr IV ONETIME ONE Stop: 03/06/20 16:59 Last Admin: 03/06/20 14:47 Dose: 25 mls/hr Lactated Ringer's (Ringers, Lactated) Confirm Administered Dose 1,000 mls @ as directed .ROUTE .STK-MED ONE Stop: 03/06/20 11:03 Magnesium Sulfate 4 gm/ Premix 50 mls @ 12.5 mls/hr IV ONETIME ONE Stop: 03/07/20 12:53 Last Admin: 03/07/20 10:59 Dose: 12.5 mls/hr Lactated Ringer's (Ringers, Lactated) 500 mls @ 999 mls/hr IV .BOLUS ONE Stop: 03/10/20 09:39 Last Admin: 03/10/20 09:20 Dose: 999 mls/hr Lactated Ringer's (Ringers, Lactated) Confirm Administered Dose 1,000 mls @ as directed .ROUTE .STK-MED ONE Stop: 03/10/20 09:16 Last Admin: 03/10/20 09:21 Dose: Not Given Levothyroxine Sodium (Levothyroxine) 75 mcg PO ACBREAKFAST ARNIE Last Admin: 03/07/20 08:05 Dose: Not Given Magnesium Hydroxide (Milk Of Magnesia) 30 ml PO ONETIME ONE Stop: 03/08/20 17:31 Last Admin: 03/08/20 17:43 Dose: 30 ml Midazolam HCl (Versed 1 Mg/Ml) Confirm Administered Dose 2 mg .ROUTE .STK-MED ONE Stop: 03/06/20 09:29 Miscellaneous Medication (Phenylephrine 1 Mg/10 Ml-Ns) Confirm Administered Dose 1 mg IV .STK-MED ONE Stop: 03/06/20 10:58 Ondansetron HCl (Zofran) Confirm Administered Dose 4 mg .ROUTE .STK-MED ONE Stop: 03/06/20 11:04 Oxycodone/Acetaminophen (Percocet 325-5 Mg) 1 tab PO Q4H PRN PRN Reason: Pain (moderate 4-6) Last Admin: 03/06/20 14:49 Dose: 1 tab Propofol (Diprivan 20 Ml) Confirm Administered Dose 400 mg .ROUTE .STK-MED ONE Stop: 03/06/20 09:28 Tamsulosin HCl (Flomax) 0.4 mg PO ONETIME ONE Stop: 03/07/20 17:31 Last Admin: 03/07/20 17:44 Dose: 0.4 mg Triamterene/HCTZ (Dyazide 25-37.5 Mg) 1 each PO DAILY ON LICENSE OF [facility] Last Admin: 03/10/20 09:08 Dose: Not Given - Exam Wound/Incisions: Dressing Dry and Intact, Other (Min shadowing at superior portion of incision.) General: Alert, Cooperative, No Acute Distress Extremities: Other (Right thigh soft. Right calf nontender. Pt was able to sense touch at RLE.) Sepsis Event Note - Evaluation Sepsis Screening Result: No Definite Risk - Focused Exam Vital Signs: Vital Signs Temp Pulse Resp BP Pulse Ox 03/10/20 09:08 88/43 L 03/10/20 02:35 97.5 F 91 16 159/79 H 94 L Date Exam was Performed: 03/10/20 Time Exam was Performed: 11:15 - Problem List Review Problem List Initiated/Reviewed/Updated: Yes - My Orders Last 24 Hours: Active Orders 24 hr Category Date Time Status Patient Status [ADT] Routine ADT 03/10/20 09:10 Active Dressing Change [Wound Care] [RC] ASDIRECTED Care 03/10/20 11:14 Ordered Acetaminophen [Tylenol] Med 03/10/20 02:27 Active 650 mg PO Q4H PRN Insulin Glarg,Human.Rec.Analog [LantUS] Med 03/09/20 21:00 Active 7 unit SUBCUT BEDTIME Lactated Ringers [Ringers, Lactated] 1,000 ml Med 03/10/20 11:00 Active IV ASDIRECTED hydroCHLOROthiazide Med 03/11/20 09:00 Active 25 mg PO DAILY Medication Orders Acetaminophen (Tylenol) 650 mg RECTAL Q4H PRN PRN Reason: Pain (mild 1-3) Acetaminophen (Tylenol) 650 mg PO Q4H PRN PRN Reason: Pain Last Admin: 03/10/20 02:49 Dose: 650 mg Albuterol (Proventil Hfa) 0 gm INH Q4H PRN PRN Reason: Dyspnea Docusate Sodium (Colace) 100 mg PO BID ON LICENSE OF [facility] Last Admin: 03/10/20 09:07 Dose: 100 mg Admin: 03/09/20 21:52 Dose: 100 mg Admin: 03/09/20 08:45 Dose: 100 mg Admin: 03/08/20 21:31 Dose: 100 mg Admin: 03/08/20 08:10 Dose: 100 mg Admin: 03/07/20 22:37 Dose: 100 mg Admin: 03/07/20 08:59 Dose: 100 mg Admin: 03/06/20 21:01 Dose: 100 mg Admin: 03/06/20 12:54 Dose: 100 mg Admin: 03/06/20 09:01 Dose: Admin: 03/05/20 21:18 Dose: 100 mg Donepezil HCl (Aricept) 5 mg PO BEDTIME ON LICENSE OF [facility] Last Admin: 03/09/20 21:52 Dose: 5 mg Admin: 03/08/20 21:30 Dose: 5 mg Admin: 03/07/20 22:38 Dose: 5 mg Admin: 03/06/20 20:59 Dose: 5 mg Admin: 03/05/20 21:18 Dose: 5 mg Hydrochlorothiazide (Hydrochlorothiazide) 25 mg PO DAILY ON LICENSE OF [facility] Hydromorphone HCl (Dilaudid) 0.5 mg IVPUSH Q2H PRN PRN Reason: Pain (severe 7-10) Last Admin: 03/05/20 21:27 Dose: 0.5 mg Admin: 03/05/20 18:07 Dose: 0.5 mg Lactated Ringer's (Ringers, Lactated) 1,000 mls @ 75 mls/hr IV ASDIRECTED ON LICENSE OF [facility] Insulin Glargine (Lantus) 7 unit SUBCUT BEDTIME ON LICENSE OF [facility] Last Admin: 03/09/20 21:52 Dose: 7 units Insulin Human Lispro (Humalog) 0 unit SUBCUT QIDACANDBED ON LICENSE OF [facility]; Protocol Last Admin: 03/10/20 08:44 Dose: 1 units Admin: 03/09/20 21:54 Dose: 4 units Admin: 03/09/20 17:48 Dose: 2 units Admin: 03/09/20 11:03 Dose: 3 units Admin: 03/09/20 08:44 Dose: 1 units Admin: 03/08/20 21:33 Dose: 2 units Admin: 03/08/20 17:04 Dose: 2 units Admin: 03/08/20 12:10 Dose: 2 units Admin: 03/08/20 08:12 Dose: 2 units Admin: 03/07/20 22:38 Dose: 2 units Admin: 03/07/20 17:44 Dose: 2 units Admin: 03/07/20 11:49 Dose: 2 units Admin: 03/07/20 07:43 Dose: Not Given Admin: 03/06/20 21:06 Dose: 2 units Admin: 03/06/20 17:16 Dose: Not Given Admin: 03/06/20 13:00 Dose: Not Given Admin: 03/06/20 08:55 Dose: Not Given Admin: 03/06/20 02:01 Dose: Not Given Admin: 03/05/20 18:37 Dose: Not Given Levothyroxine Sodium (Levothyroxine) 75 mcg PO ACBREAKFAST ON LICENSE OF [facility] Last Admin: 03/10/20 06:36 Dose: 75 mcg Admin: 03/09/20 06:32 Dose: 75 mcg Admin: 03/08/20 06:33 Dose: 75 mcg Admin: 03/07/20 06:42 Dose: 75 mcg Admin: 03/06/20 09:00 Dose: 75 mcg Losartan Potassium (Cozaar) 25 mg PO DAILY ON LICENSE OF [facility] Last Admin: 03/10/20 09:08 Dose: Admin: 03/09/20 08:45 Dose: 25 mg Admin: 03/08/20 08:10 Dose: 25 mg Admin: 03/07/20 09:00 Dose: 25 mg Admin: 03/06/20 12:55 Dose: 25 mg Memantine (Namenda) 10 mg PO BID ON LICENSE OF [facility] Last Admin: 03/10/20 09:08 Dose: 10 mg Admin: 03/09/20 21:52 Dose: 10 mg Admin: 03/09/20 08:45 Dose: 10 mg Admin: 03/08/20 21:30 Dose: 10 mg Admin: 03/08/20 08:12 Dose: 10 mg Admin: 03/07/20 22:37 Dose: 10 mg Admin: 03/07/20 09:00 Dose: 10 mg Admin: 03/06/20 21:01 Dose: 10 mg Admin: 03/06/20 08:53 Dose: 10 mg Admin: 03/05/20 21:18 Dose: 10 mg Ondansetron HCl (Zofran) 4 mg IV Q6H PRN PRN Reason: Nausea/Vomiting Oxycodone/Acetaminophen (Percocet 325-5 Mg) 1 - 2 tab PO Q4H PRN PRN Reason: Pain (moderate 4-6) Last Admin: 03/09/20 14:28 Dose: 2 tab Admin: 03/09/20 08:45 Dose: 2 tab Admin: 03/08/20 21:31 Dose: 2 tab Admin: 03/08/20 08:10 Dose: 2 tab Admin: 03/08/20 01:23 Dose: 2 tab Admin: 03/07/20 17:42 Dose: 2 tab Admin: 03/07/20 08:59 Dose: 2 tab Admin: 03/06/20 21:02 Dose: 2 tab Pantoprazole Sodium (Protonix) 40 mg PO BIDMEALS ON LICENSE OF [facility] Last Admin: 03/10/20 06:36 Dose: 40 mg Admin: 03/09/20 17:48 Dose: 40 mg Admin: 03/09/20 06:32 Dose: 40 mg Admin: 03/08/20 17:43 Dose: 40 mg Admin: 03/08/20 06:35 Dose: 40 mg Admin: 03/07/20 17:44 Dose: 40 mg Admin: 03/07/20 06:42 Dose: 40 mg Admin: 03/06/20 17:21 Dose: 40 mg Admin: 03/06/20 08:54 Dose: 40 mg Admin: 03/05/20 18:00 Dose: 40 mg Rivaroxaban (Xarelto) 10 mg PO DAILY ON LICENSE OF [facility] Last Admin: 03/10/20 09:08 Dose: 10 mg Admin: 03/09/20 08:46 Dose: 10 mg Admin: 03/08/20 08:12 Dose: 10 mg Admin: 03/07/20 10:27 Dose: 10 mg Rosuvastatin Calcium (Crestor) 20 mg PO DAILY ON LICENSE OF [facility] Last Admin: 03/10/20 09:07 Dose: 20 mg Admin: 03/09/20 08:45 Dose: 20 mg Admin: 03/08/20 08:12 Dose: 20 mg Admin: 03/07/20 09:00 Dose: 20 mg Admin: 03/06/20 08:53 Dose: 20 mg Sodium Chloride (Saline Flush) 10 ml FLUSH ASDIRECTED PRN PRN Reason: Keep Vein Open Last Admin: 03/05/20 11:26 Dose: 10 ml Tamsulosin HCl (Flomax) 0.4 mg PO PCBREAKFAST ARNIE Last Admin: 03/10/20 09:08 Dose: 0.4 mg Admin: 03/09/20 09:29 Dose: Admin: 03/09/20 08:47 Dose: 0.4 mg Admin: 03/08/20 10:00 Dose: 0.4 mg - Assessment Assessment (Free Text/Narrative):: POD#4 - cephalomedullary tessy placement for right hip fracture - Plan Plan (Free Text/Narrative):: 1. Xarelto x 35 days total. 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 2. Discharge to [place] likely tomorrow. Pt will benefit from continued rehabilitation. 3. WBAT RLE. 4. Further orders per Hospitalist service. The pt's case was discussed with Dr. Turner.
[2020-03-10] MEDS: Acetaminophen/oxyCODONE 325-5 MG Tab PO PRN (14:49)
[2020-03-10] MEDS: Donepezil 10 MG Tab PO SCH (21:25)
[2020-03-10] MEDS: Insulin Glarg,Human.Rec.Analog 100 Unit/ML SUBCUT SCH (21:26)
[2020-03-11] MEDS: Levothyroxine 75 MCG Tab PO SCH (06:18)
[2020-03-11] MEDS: Pantoprazole 40 MG Tab.CR PO SCH (06:18)
[2020-03-11 08:08] VITALS: BP 141/64; PULSE 51
[2020-03-11] MEDS: Insulin Lispro 100 Units/ML 3 ML Vial SUBCUT SCH ×2 (08:29→11:50)
[2020-03-11] MEDS: Rivaroxaban 10 MG Tab PO SCH (08:31)
[2020-03-11] MEDS: Memantine 10 MG Tab PO SCH (08:32)
[2020-03-11] MEDS: Docusate Sodium 100 MG Cap PO SCH (08:32)
[2020-03-11] MEDS: Rosuvastatin 10 MG Tab PO SCH (08:32)
[2020-03-11] MEDS: Losartan 25 MG Tab PO SCH (08:32)
[2020-03-11] MEDS ORDERED: Magnesium Sulfate/Water 2 GM in Premix Bag 1 BAG IV ONE (08:47)
[2020-03-11] MEDS ORDERED: Hydrochlorothiazide 25 MG Tab PO SCH (09:00)
[2020-03-11] MEDS: Tamsulosin 0.4 MG Cap.ER PO SCH (10:10)
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
== END 2020-03-11 13:07 | DRG 481 ==
LOC: JD.ED 11:00 → JD.MS 14:10
PROVIDERS: ADMIT Family Medicine; ATTEND Family Medicine
PROC: 0QS636Z Reposition Right Upper Femur with Intramedullary Internal Fixation Device, Percutaneous Approach (ICD-10-PCS; principal; 2020-03-06)
DX: S72.91XA Unspecified fracture of right femur, initial encounter for closed fracture (principal); W18.39XA Other fall on same level, initial encounter; Y92.007 Garden or yard of unspecified non-institutional (private) residence as the place of occurrence of the external cause; S72.144A Nondisplaced intertrochanteric fracture of right femur, initial encounter for closed fracture; E78.00 Pure hypercholesterolemia, unspecified; N17.9 Acute kidney failure, unspecified; W19.XXXA Unspecified fall, initial encounter; E78.5 Hyperlipidemia, unspecified; I10 Essential (primary) hypertension; J45.909 Unspecified asthma, uncomplicated; G47.30 Sleep apnea, unspecified; E11.9 Type 2 diabetes mellitus without complications; K21.9 Gastro-esophageal reflux disease without esophagitis; Z96.651 Presence of right artificial knee joint; Z96.642 Presence of left artificial hip joint; Z79.82 Long term (current) use of aspirin; Z79.890 Hormone replacement therapy; F03.90 Unspecified dementia, unspecified severity, without behavioral disturbance, psychotic disturbance, mood disturbance, and anxiety; Z11.59 Encounter for screening for other viral diseases; E03.9 Hypothyroidism, unspecified; R41.3 Other amnesia; E11.69 Type 2 diabetes mellitus with other specified complication; M89.49 Other hypertrophic osteoarthropathy, multiple sites; E83.42 Hypomagnesemia; I95.89 Other hypotension; E86.1 Hypovolemia; R33.9 Retention of urine, unspecified; Z87.442 Personal history of urinary calculi; Z86.718 Personal history of other venous thrombosis and embolism; Z79.899 Other long term (current) drug therapy
CPT/HCPCS: 36415; 71045; 73502; 73552; 73590; 80053; 85025; 85610; 86850; 86870; 86900; 86901; 93005; 96360; 96361; 99285; J1170; J7030; 01230; 51701; 51702; 51798; 76000; 76000-26; 80048; 82962; 83735; 84484; 87641; 93010; 94640; 97110-GO; 97110-GP; 97116-GP; 97162-GP; 97165-GO; 97530-GO; 97530-GP; 97535-GO; 99222; 99231; 99232; 99239; 99284; A9270-GY; C1713; J0171; J0690; J1815-GY; J2001; J2250; J2370; J2405; J2704; J3010; J3475; J3490; J7120; U0002

== ENCOUNTER 2020-03-12 07:04 | Emergency (ER) | payer MEDICARE, OTHER ==
--- NOTE | 2020-03-12 07:24 | EDM.PDOC ---
ED HPI GENERAL MEDICAL PROBLEM - General Chief Complaint: General Stated Complaint: [facility] Time Seen by Provider: 03/12/20 07:09 Source of Information: Reports: EMS, Retirement Records History Limitations: Reports: Altered Mental Status - History of Present Illness INITIAL COMMENTS - FREE TEXT/NARRATIVE: The patient presents [facility] because he was not responding. [facility] arrived at the [facility] yesterday from [facility] hospital. He was here for a right hip fracture and repair. He went to the [facility] to recover. He is getting percocet for pain. He was up at 3am to go to the bathroom. He did that with assistance and he was alert then. They checked on him this morning and he was not responding. He had a pulse and he was breathing. He has pinpoint pupils. I am not sure at this time when his last percocet was. The intermediate will be sending his records. Onset: Gradual Duration: Hour(s): Improves with: Reports: None Worsens with: Reports: None Associated Symptoms: Reports: No Other Symptoms - Related Data Allergies Allergy/AdvReac Type Severity Reaction Status Date / Time No Known Allergies Allergy Verified 03/05/20 16:31 Home Meds: Home Meds Albuterol Sulfate [Proair Hfa] 2 puff INH Q4HR PRN 03/05/20 [History] Atropine/Diphenoxylate [Diphenoxylate-Atropine] 2 tab PO QID PRN 03/05/20 [ History] Coconut Oil 1 cap PO DAILY 03/05/20 [History] Donepezil [Aricept] 5 mg PO BEDTIME 03/05/20 [History] Fluticasone Propionate [Flonase] 1 spray NASBOTH BID 03/05/20 [History] Glimepiride 1 mg PO DAILY 03/05/20 [History] Hydrocortisone [Hydrocortisone 2.5% Crm] 1 dose TOP BID 03/05/20 [History] Levothyroxine 75 mcg PO DAILY 03/05/20 [History] Losartan [Cozaar] 25 mg PO DAILY 03/05/20 [History] Memantine HCl [Namenda] 10 mg PO BID 03/05/20 [History] Multivitamin with Minerals [Multivitamins with Minerals] 1 tab PO DAILY [History] [place]-3 Fatty Acids/Fish Oil [Fish Oil 1,000 mg Softgel] 1,000 mg PO DAILY 03/05 [History] Omeprazole 20 mg PO BID 03/05/20 [History] Rosuvastatin [Crestor] 20 mg PO DAILY 03/05/20 [History] Acetaminophen [Tylenol] 650 mg PO Q4H PRN #30 tablet 03/11/20 [Rx] Acetaminophen/oxyCODONE [Percocet 325-5 MG] 1 - 2 tab PO Q4H PRN #40 tablet [Rx] Docusate Sodium [Colace] 100 mg PO BID #30 cap 03/11/20 [Rx] Rivaroxaban [Xarelto] 10 mg PO DAILY #30 tablet 03/11/20 [Rx] Tamsulosin [Flomax] 0.4 mg PO PCBREAKFAST #20 cap.er 03/11/20 [Rx] hydroCHLOROthiazide [Hydrochlorothiazide] 25 mg PO DAILY #20 tablet 03/11/20 [Rx ] traMADol [Ultram] 50 - 100 mg PO Q6H PRN #30 tab 03/12/20 [Rx] Past Medical History HEENT History: Reports: Cataract Cardiovascular History: Reports: Blood Clots/VTE/DVT, High Cholesterol, Hypertension Respiratory History: Reports: Asthma, Sleep Apnea Gastrointestinal History: Reports: GERD Other Gastrointestinal History: gallstones Other Genitourinary History: kidney stone Other Neuro History: dementia, memory loss Endocrine/Metabolic History: Reports: Diabetes, Type II, Hypothyroidism - Infectious Disease History Infectious Disease History: Reports: Chicken Pox, Measles, Mumps - Past Surgical History Musculoskeletal Surgical History: Reports: Knee Replacement, Other (See Below) Other Musculoskeletal Surgeries/Procedures:: left hip replacement, left knee replacement Social & Family History - Family History Family Medical History: Noncontributory - Caffeine Use Caffeine Use: Reports: None ED ROS GENERAL - Review of Systems Review Of Systems: See Below Constitutional: Reports: No Symptoms HEENT: Reports: No Symptoms Respiratory: Reports: No Symptoms Cardiovascular: Reports: No Symptoms Endocrine: Reports: No Symptoms GI/Abdominal: Reports: No Symptoms : Reports: No Symptoms Musculoskeletal: Reports: No Symptoms Skin: Reports: No Symptoms Neurological: Reports: Other (Responding to verbal stimuli) ED EXAM, GENERAL - Physical Exam Exam: See Below Exam Limited By: Altered Mental Status General Appearance: No Apparent Distress, Lethargic Eye Exam: Bilateral Eye: Other (Pupils are pinpoint and not reactive) Ears: Normal External Exam Nose: Normal Inspection Head: Atraumatic, Normocephalic Neck: Normal Inspection Respiratory/Chest: No Respiratory Distress, Lungs Clear, Normal Breath Sounds Cardiovascular: Regular Rate, Rhythm, No Edema, No Murmur GI/Abdominal: Soft, Non-Tender, No Organomegaly, No Mass Back Exam: Normal Inspection Extremities: Normal Inspection Neurological: Other (Sleepy. He will follow some commands and he said no when asked if he was cold) Course - Vital Signs Last Recorded V/S: Last Vital Signs Temp 97.0 F 03/12/20 07:04 Pulse 76 03/12/20 07:04 Resp 16 03/12/20 07:04 BP 155/52 H 03/12/20 07:04 Pulse Ox 96 03/12/20 07:04 - Orders/Labs/Meds Orders: Active Orders 24 hr Category Date Time Status Cardiac Monitoring [RC] . DIRECTED Care 03/12/20 07:23 Active Labs: Laboratory Tests 03/12/20 03/12/20 03/12/20 Range/Units 07:19 07:35 07:35 WBC 11.34 H (4.23-9.07) K/mm3 RBC 3.25 L (4.63-6.08) M/mm3 Hgb 9.3 L (13.7-17.5) gm/dl Hct 29.2 L (40.1-51.0) % MCV 89.8 (79.0-92.2) fl MCH 28.6 (25.7-32.2) pg MCHC 31.8 L (32.2-35.5) g/dl RDW Std Deviation 41.3 (35.1-43.9) fL Plt Count 198 (163-337) K/mm3 MPV 10.9 (9.4-12.3) fl Neut % (Auto) 77.2 H (34.0-67.9) % Lymph % (Auto) 11.1 L (21.8-53.1) % [place] % (Auto) 10.4 (5.3-12.2) % Eos % (Auto) 0.6 L (0.8-7.0) Baso % (Auto) 0.4 (0.1-1.2) % Neut # (Auto) 8.76 H (1.78-5.38) K/mm3 Lymph # (Auto) 1.26 L (1.32-3.57) K/mm3 [place] # (Auto) 1.18 H (0.30-0.82) K/mm3 Eos # (Auto) 0.07 (0.04-0.54) K/mm3 Baso # (Auto) 0.04 (0.01-0.08) K/mm3 Manual Slide Review Normal smear Sodium 141 (136-145) mEq/L Potassium 4.5 (3.5-5.1) mEq/L Chloride 104 (98-107) mEq/L Carbon Dioxide 26 (21-32) mEq/L Anion Gap 15.5 H (5-15) BUN 52 H (7-18) mg/dL Creatinine 2.0 H (0.7-1.3) mg/dL Est Cr Clr Drug Dosing 30.18 mL/min Estimated GFR (MDRD) 32 (>60) mL/min BUN/Creatinine Ratio 26.0 H (14-18) Glucose 185 H (83-115) mg/dL POC Glucose 178 H (83-110) mg/dL Calcium 8.7 (8.5-10.1) mg/dL Total Bilirubin 1.0 (0.2-1.0) mg/dL AST 54 H (15-37) U/L ALT 48 (16-63) U/L Alkaline Phosphatase 99 (46-116) U/L Total Protein 5.8 L (6.4-8.2) g/dl Albumin 2.4 L (3.4-5.0) g/dl Globulin 3.4 gm/dL Albumin/Globulin Ratio 0.7 L (1-2) Meds: Medications Discontinued Medications Generic Name Dose Route Start Last Admin Trade Name Freq PRN Reason Stop Dose Admin Sodium Chloride 500 mls @ 1,000 mls/hr 03/12/20 08:12 Normal Saline IV 03/12/20 08:41 .BOLUS ONE - Re-Assessments/Exams Free Text/Narrative Re-Assessment/Exam: 03/12/20 08:17 I will hold off on narcan at this time. I will get some labs and observe him for awhile. 03/12/20 08:19 His bedside glucose was 178. His WBC was elevated at 11.34. His Hgb was 9.3. His Hgb was around 10.8 yesterday. His creatinine is elevated at 2. It was 1.7 yesterday. His glucose is 185. His AST was 54. I will give him 500mls of fluid and observe him for awhile. 03/12/20 09:30 It appears he was to sedated due to the percocet. I will switch him to ultram. Departure - Departure Time of Disposition: :40 Disposition: Home, Self-Care 01 Condition: Good Clinical Impression: Renal insufficiency Opioid overdose Qualifiers: Encounter type: initial encounter Injury intent: accidental or unintentional Qualified Code(s): T40.2X1A - Poisoning by other opioids, accidental ( unintentional), initial encounter - Discharge Information *PRESCRIPTION DRUG MONITORING PROGRAM REVIEWED*: Not Applicable *COPY OF PRESCRIPTION DRUG MONITORING REPORT IN PATIENT VAISHALI: Not Applicable Prescriptions: traMADol [Ultram] 50 - 100 mg PO Q6H PRN #30 tab PRN Reason: Pain Referrals: Jaguar Caldwell MD [Primary Care Provider] - 1 Week Forms: ED Department Discharge Additional Instructions: Stop the percocet and switch to ultram. Take 1 to 2 pills every 6 hours as needed for pain. Take the rest of your medications as prescribed. Please return if you are worse. Sepsis Event Note - Focused Exam Vital Signs: Vital Signs Temp Pulse Resp BP Pulse Ox 03/12/20 07:04 97.0 F 76 16 155/52 H 96 Date Exam was Performed: 03/12/20 Time Exam was Performed: 09:30 - My Orders Last 24 Hours: My Active Orders 03/12/20 07:23 Cardiac Monitoring [RC] . DIRECTED - Assessment/Plan Last 24 Hours: My Active Orders 03/12/20 07:23 Cardiac Monitoring [RC] . DIRECTED
[2020-03-12 07:26] VITALS: PULSE 76
[2020-03-12] MEDS ORDERED: Sodium Chloride 0.9% 500 ML IV ONE (08:12)
[2020-03-12 11:00] VITALS: BP 169/75
== END 2020-03-12 10:47 | disposition home or self-care (01) ==
LOC: JD.ED 07:04
DX: T40.2X1A Poisoning by other opioids, accidental (unintentional), initial encounter (principal); N28.9 Disorder of kidney and ureter, unspecified; I10 Essential (primary) hypertension; E11.9 Type 2 diabetes mellitus without complications; E78.00 Pure hypercholesterolemia, unspecified; J45.909 Unspecified asthma, uncomplicated; K21.9 Gastro-esophageal reflux disease without esophagitis; E03.9 Hypothyroidism, unspecified; Z86.718 Personal history of other venous thrombosis and embolism; Z79.899 Other long term (current) drug therapy; Z79.01 Long term (current) use of anticoagulants; Z79.84 Long term (current) use of oral hypoglycemic drugs
CPT/HCPCS: 36415; 80053; 82962; 85025; 99284; J7030

== ENCOUNTER 2020-09-07 20:45 | Emergency (ER) | payer MEDICARE, OTHER ==
[2020-09-07 20:55] VITALS: BP 146/89; PULSE 114
[2020-09-07] MEDS ORDERED: Sodium Chloride 0.9% 10 ML Syringe FLUSH PRN (21:19)
[2020-09-07] MEDS ORDERED: Albuterol 6.7 GM Inhaler INH ONE (21:21)
--- NOTE | 2020-09-07 21:55 | EDM.PDOC ---
ED HPI GENERAL MEDICAL PROBLEM - General Chief Complaint: Respiratory Problem Stated Complaint: [facility] Time Seen by Provider: 09/07/20 20:53 Source of Information: Reports: Patient, [facility] Records History Limitations: Reports: No Limitations - History of Present Illness INITIAL COMMENTS - FREE TEXT/NARRATIVE: The patient presents by [facility] for hypoxia, cough, and COVID 19 infection. The patient was diagnosed last week. He has a fever, chills, cough, congestion, runny nose, shortness of breath, and generalized weakness. He could not get up on his own today. He has a history of asthma, DVT and he is on xarelto, HTN, hypercholesterolemia, sleep apnea, diabetes type II, renal disease, dementia and hypothyroidism. He comes to us from [facility] where they have had a few COVID 10 positives. Onset: Gradual Duration: Week(s): Severity: Moderate Improves with: Reports: None Worsens with: Reports: None Associated Symptoms: Reports: Cough, Fever/Chills, Shortness of Breath. Denies: Chest Pain, Headaches, Nausea/Vomiting - Related Data Allergies Allergy/AdvReac Type Severity Reaction Status Date / Time No Known Allergies Allergy Verified 09/07/20 21:11 Home Meds: Home Meds Atropine/Diphenoxylate [Diphenoxylate-Atropine] 2 tab PO QID PRN 03/05/20 [History] Donepezil [Aricept] 10 mg PO BEDTIME 03/05/20 [History] Fluticasone Propionate [Flonase] 1 spray NASBOTH BID 03/05/20 [History] Glimepiride 1 mg PO DAILY 03/05/20 [History] Levothyroxine 75 mcg PO DAILY 03/05/20 [History] Memantine HCl [Namenda] 10 mg PO BID 03/05/20 [History] Omeprazole 20 mg PO BID 03/05/20 [History] Rosuvastatin [Crestor] 20 mg PO DAILY 03/05/20 [History] Rivaroxaban [Xarelto] 10 mg PO DAILY #30 tablet 03/11/20 [Rx] Tamsulosin [Flomax] 0.4 mg PO PCBREAKFAST #20 cap.er 03/11/20 [Rx] Acetaminophen/oxyCODONE [Percocet 325-5 MG] 325 mg PO TID PRN 09/07/20 [History] Albuterol Sulfate [Proair Hfa] 2 puff IH Q4H PRN 09/07/20 [History] Past Medical History HEENT History: Reports: Allergic Rhinitis, Cataract Cardiovascular History: Reports: Blood Clots/VTE/DVT, High Cholesterol, Hypertension Other Cardiovascular History: venous thrombosis and embolism. Atherosclerotic heart disease. Respiratory History: Reports: Asthma, Sleep Apnea Gastrointestinal History: Reports: GERD, Other (See Below) Other Gastrointestinal History: gallstones Genitourinary History: Reports: Acute Renal Failure, BPH Other Genitourinary History: kidney stone, Musculoskeletal History: Reports: Other (See Below) Other Musculoskeletal History: R femur fx Other Neuro History: dementia, memory loss Psychiatric History: Reports: Dementia Other Psychiatric History: (I48.372)--cognitive communication deficit. Endocrine/Metabolic History: Reports: Diabetes, Type II, Hypothyroidism - Infectious Disease History Infectious Disease History: Reports: Novel Coronavirus - Past Surgical History Musculoskeletal Surgical History: Reports: Knee Replacement, Other (See Below) Other Musculoskeletal Surgeries/Procedures:: left hip replacement, left knee replacement Social & Family History - Family History Family Medical History: Noncontributory - Tobacco Use Smoking Status *Q: Never Smoker - Caffeine Use Caffeine Use: Reports: Coffee ED ROS GENERAL - Review of Systems Review Of Systems: See Below Constitutional: Reports: Fever, Chills, Malaise, Weakness, Fatigue HEENT: Reports: No Symptoms Respiratory: Reports: Shortness of Breath, Cough Cardiovascular: Reports: No Symptoms Endocrine: Reports: No Symptoms GI/Abdominal: Reports: No Symptoms : Reports: No Symptoms ED EXAM, GENERAL - Physical Exam Exam: See Below Exam Limited By: No Limitations General Appearance: Alert, No Apparent Distress Ears: Normal External Exam Nose: Normal Inspection Head: Atraumatic, Normocephalic Neck: Normal Inspection Respiratory/Chest: No Respiratory Distress, Decreased Breath Sounds, Rhonchi, Wheezing Cardiovascular: Regular Rate, Rhythm, No Edema, No Murmur GI/Abdominal: Soft, Non-Tender, No Organomegaly, No Mass Back Exam: Normal Inspection Extremities: Normal Inspection Course - Vital Signs Last Recorded V/S: Last Vital Signs Temp 99.9 F 09/07/20 20:51 Pulse 114 H 09/07/20 20:51 Resp 30 H 09/07/20 20:51 BP 146/89 H 09/07/20 20:51 Pulse Ox 92 L 09/07/20 21:19 - Orders/Labs/Meds Orders: Active Orders 24 hr Category Date Time Status Cardiac Monitoring [RC] . DIRECTED Care 09/07/20 21:19 Active Oxygen Therapy [RC] PRN Care 09/07/20 21:19 Active Peripheral IV Care [RC] . DIRECTED Care 09/07/20 21:20 Active RT Post Treatment Assessment [RC] Click to Edit Care 09/07/20 21:21 Active RT Pre-Treatment Assessment [RC] Click to Edit Care 09/07/20 21:21 Active Chest 1V Frontal [CR] Stat Exams 09/07/20 21:20 Taken CULTURE BLOOD [BC] Stat Lab 09/07/20 21:50 Received CULTURE BLOOD [BC] Stat Lab 09/07/20 22:00 Received Sodium Chloride 0.9% [Saline Flush] Med 09/07/20 21:19 Active 10 ml FLUSH ASDIRECTED PRN Blood Culture x2 Reflex Set [OM.PC] Stat Oth 09/07/20 21:20 Ordered Peripheral IV Insertion Adult [OM.PC] Stat Oth 09/07/20 21:19 Ordered Medication Orders Sodium Chloride (Saline Flush) 10 ml FLUSH ASDIRECTED PRN PRN Reason: Keep Vein Open Last Admin: 09/07/20 21:41 Dose: 10 ml Documented by: MARISSA Labs: Laboratory Tests 09/07/20 09/07/20 09/07/20 Range/Units 20:57 20:57 20:57 WBC 10.59 H (4.23-9.07) K/mm3 RBC 4.53 L (4.63-6.08) M/mm3 Hgb 13.0 L D (13.7-17.5) gm/dl Hct 39.2 L (40.1-51.0) % MCV 86.5 D (79.0-92.2) fl MCH 28.7 (25.7-32.2) pg MCHC 33.2 (32.2-35.5) g/dl RDW Std Deviation 45.0 H (35.1-43.9) fL Plt Count 274 D (163-337) K/mm3 MPV 11.5 (9.4-12.3) fl Neut % (Auto) 74.3 H (34.0-67.9) % Lymph % (Auto) 16.0 L (21.8-53.1) % Saline % (Auto) 8.9 (5.3-12.2) % Eos % (Auto) 0.3 L (0.8-7.0) Baso % (Auto) 0.4 (0.1-1.2) % Neut # (Auto) 7.88 H (1.78-5.38) K/mm3 Lymph # (Auto) 1.69 (1.32-3.57) K/mm3 Saline # (Auto) 0.94 H (0.30-0.82) K/mm3 Eos # (Auto) 0.03 L (0.04-0.54) K/mm3 Baso # (Auto) 0.04 (0.01-0.08) K/mm3 Manual Slide Review Normal smear PT 14.0 H (9.7-11.7) SECONDS INR 1.32 APTT 34 H (22-31) SECONDS D-Dimer, Quantitative 0.56 H (0.19-0.50) mg/L Puncture Site ABG pH (7.35-7.45) ABG pCO2 (35.0-45.0) mmHg ABG pO2 (80.0-100.0) mmHg ABG HCO3 (22.0-26.0) meq/L ABG O2 Saturation (96.0-97.0) % ABG Base Excess (-2-2.0) Yousif Test A-a Gradient mmHg O2 Delivery Device Oxygen Flow Rate FiO2 (21.00-100.00) % Sodium 142 (136-145) mEq/L Potassium 4.2 (3.5-5.1) mEq/L Chloride 105 (98-107) mEq/L Carbon Dioxide 23 (21-32) mEq/L Anion Gap 18.2 H (5-15) BUN 34 H (7-18) mg/dL Creatinine 2.1 H (0.7-1.3) mg/dL Est Cr Clr Drug Dosing TNP Estimated GFR (MDRD) 30 (>60) mL/min BUN/Creatinine Ratio 16.2 (14-18) Glucose 191 H (83-115) mg/dL Lactic Acid (0.4-2.0) mmol/L Calcium 8.3 L (8.5-10.1) mg/dL Ferritin (26-388) ng/ml Total Bilirubin 0.8 (0.2-1.0) mg/dL AST 93 H (15-37) U/L ALT 109 H (16-63) U/L Alkaline Phosphatase 114 (46-116) U/L Lactate Dehydrogenase 206 (85-227) U/L C-Reactive Protein 16.4 H* (<1.0) mg/dL Total Protein 6.3 L (6.4-8.2) g/dl Albumin 2.2 L (3.4-5.0) g/dl Globulin 4.1 gm/dL Albumin/Globulin Ratio 0.5 L (1-2) 09/07/20 09/07/20 09/07/20 Range/Units 20:57 21:37 22:00 WBC (4.23-9.07) K/mm3 RBC (4.63-6.08) M/mm3 Hgb (13.7-17.5) gm/dl Hct (40.1-51.0) % MCV (79.0-92.2) fl MCH (25.7-32.2) pg MCHC (32.2-35.5) g/dl RDW Std Deviation (35.1-43.9) fL Plt Count (163-337) K/mm3 MPV (9.4-12.3) fl Neut % (Auto) (34.0-67.9) % Lymph % (Auto) (21.8-53.1) % Saline % (Auto) (5.3-12.2) % Eos % (Auto) (0.8-7.0) Baso % (Auto) (0.1-1.2) % Neut # (Auto) (1.78-5.38) K/mm3 Lymph # (Auto) (1.32-3.57) K/mm3 Saline # (Auto) (0.30-0.82) K/mm3 Eos # (Auto) (0.04-0.54) K/mm3 Baso # (Auto) (0.01-0.08) K/mm3 Manual Slide Review PT (9.7-11.7) SECONDS INR APTT (22-31) SECONDS D-Dimer, Quantitative (0.19-0.50) mg/L Puncture Site Lt radial ABG pH 7.50 H (7.35-7.45) ABG pCO2 29.2 L (35.0-45.0) mmHg ABG pO2 75.0 L (80.0-100.0) mmHg ABG HCO3 22.3 (22.0-26.0) meq/L ABG O2 Saturation 91.6 L (96.0-97.0) % ABG Base Excess 0.4 (-2-2.0) Yousif Test Positive A-a Gradient 145 mmHg O2 Delivery Device Nasal cannula Oxygen Flow Rate 4.0 FiO2 36.00 (21.00-100.00) % Sodium (136-145) mEq/L Potassium (3.5-5.1) mEq/L Chloride (98-107) mEq/L Carbon Dioxide (21-32) mEq/L Anion Gap (5-15) BUN (7-18) mg/dL Creatinine (0.7-1.3) mg/dL Est Cr Clr Drug Dosing Estimated GFR (MDRD) (>60) mL/min BUN/Creatinine Ratio (14-18) Glucose (83-115) mg/dL Lactic Acid 1.3 (0.4-2.0) mmol/L Calcium (8.5-10.1) mg/dL Ferritin 254 (26-388) ng/ml Total Bilirubin (0.2-1.0) mg/dL AST (15-37) U/L ALT (16-63) U/L Alkaline Phosphatase (46-116) U/L Lactate Dehydrogenase (85-227) U/L C-Reactive Protein (<1.0) mg/dL Total Protein (6.4-8.2) g/dl Albumin (3.4-5.0) g/dl Globulin gm/dL Albumin/Globulin Ratio (1-2) Meds: Medications Generic Name Dose Route Start Last Admin Trade Name Freq PRN Reason Stop Dose Admin Sodium Chloride 10 ml 09/07/20 21:19 09/07/20 21:41 Saline Flush FLUSH 10 ml ASDIRECTED PRN Administration Keep Vein Open Discontinued Medications Generic Name Dose Route Start Last Admin Trade Name Freq PRN Reason Stop Dose Admin Albuterol 0 gm 09/07/20 21:21 09/07/20 22:29 Proventil Hfa INH 09/07/20 21:22 2 puff ONETIME ONE Administration Dexamethasone 10 mg 09/07/20 22:31 09/07/20 22:55 Dexamethasone IVPUSH 09/07/20 22:32 10 mg ONETIME ONE Administration Sodium Chloride 500 mls @ 1,000 mls/hr 09/07/20 22:35 09/07/20 22:56 Normal Saline IV 09/07/20 23:04 1,000 mls/hr .BOLUS ONE Administration - Re-Assessments/Exams Free Text/Narrative Re-Assessment/Exam: 09/07/20 21:56 I ordered an IV saline lock, oxygen, labs, ABG, blood cultures, lactic acid and a CXR. I do not see any infiltrates on his CXR. His WBC was slightly elevated at 10.59. His D-dimer was slightly elevated at 0.56 consistent with the COVID 19 infection. His pH is elevated at 0.56. His pCO2 is low at 29. His pO2 is a little low at 75. His creatinine is elevated at 2.1. That appears to be at or near his baseline. His glucose was 191. His AST was elevated at 93. His ALT is 109. His LDH is negative. His CRP is 16.4. 09/07/20 23:14 I feel he needs to be admitted. We have no beds here. I called both [facility] and [facility] and they are both full. I called [facility] in [facility] and talked with Dr Christine the hospitalist clinical application manager and he accepted the patient. He wanted me to give the patient dexamethasone 10mg IV. I have ordered that. The patient will have to fly to [place]. Local ambulance would take over 4 hours and they have been overwhelmed. I did call the patient's daughter and talked with her. His wishes are to be full code at this time. Departure - Departure Time of Disposition: 23:20 Disposition: DC/Tfer to Acute Hospital 02 Condition: Serious Clinical Impression: COVID-19, Hypoxia, Renal insufficiency - Discharge Information Referrals: Jaguar Caldwell MD [Primary Care Provider] - Forms: ED Department Discharge Sepsis Event Note (ED) - Evaluation Sepsis Screening Result: Possible Sepsis Risk - Focused Exam Vital Signs: Vital Signs Temp Pulse Resp BP Pulse Ox Pulse Ox 09/07/20 21:19 92 L 09/07/20 20:51 99.9 F 114 H 30 H 146/89 H 85 L - My Orders Last 24 Hours: My Active Orders 09/07/20 21:19 Cardiac Monitoring [RC] . DIRECTED Oxygen Therapy [RC] PRN Sodium Chloride 0.9% [Saline Flush] 10 ml FLUSH ASDIRECTED PRN Peripheral IV Insertion Adult [OM.PC] Stat 09/07/20 21:20 Peripheral IV Care [RC] . DIRECTED Chest 1V Frontal [CR] Stat Blood Culture x2 Reflex Set [OM.PC] Stat 09/07/20 21:21 RT Post Treatment Assessment [RC] Click to Edit RT Pre-Treatment Assessment [RC] Click to Edit 09/07/20 21:50 CULTURE BLOOD [BC] Stat 09/07/20 22:00 CULTURE BLOOD [BC] Stat - Assessment/Plan Last 24 Hours: My Active Orders 09/07/20 21:19 Cardiac Monitoring [RC] . DIRECTED Oxygen Therapy [RC] PRN Sodium Chloride 0.9% [Saline Flush] 10 ml FLUSH ASDIRECTED PRN Peripheral IV Insertion Adult [OM.PC] Stat 09/07/20 21:20 Peripheral IV Care [RC] . DIRECTED Chest 1V Frontal [CR] Stat Blood Culture x2 Reflex Set [OM.PC] Stat 09/07/20 21:21 RT Post Treatment Assessment [RC] Click to Edit RT Pre-Treatment Assessment [RC] Click to Edit 09/07/20 21:50 CULTURE BLOOD [BC] Stat 09/07/20 22:00 CULTURE BLOOD [BC] Stat
[2020-09-07] MEDS ORDERED: Dexamethasone 4 MG/ML SDV IVPUSH ONE (22:31)
[2020-09-07] MEDS ORDERED: Sodium Chloride 0.9% 500 ML IV ONE (22:35)
== END 2020-09-07 23:32 ==
LOC: JD.ED 20:45
DX: U07.1 COVID-19 (principal); R09.02 Hypoxemia; N28.9 Disorder of kidney and ureter, unspecified; E78.00 Pure hypercholesterolemia, unspecified; I10 Essential (primary) hypertension; J45.909 Unspecified asthma, uncomplicated; N40.0 Benign prostatic hyperplasia without lower urinary tract symptoms; F03.90 Unspecified dementia, unspecified severity, without behavioral disturbance, psychotic disturbance, mood disturbance, and anxiety; E03.9 Hypothyroidism, unspecified; K21.9 Gastro-esophageal reflux disease without esophagitis; Z86.718 Personal history of other venous thrombosis and embolism; Z79.01 Long term (current) use of anticoagulants; Z79.84 Long term (current) use of oral hypoglycemic drugs; Z79.899 Other long term (current) drug therapy
CPT/HCPCS: 36415; 36600; 71045; 80053; 82728; 82803; 83605; 83615; 85025; 85379; 85610; 85730; 86140; 87040; 96374; 99285; A9270; J1100; J7030; 99284

== ENCOUNTER 2020-12-05 19:54 | Emergency (ER) | payer MEDICARE, OTHER ==
[2020-12-05 20:10] VITALS: BP 145/64; PULSE 67
--- NOTE | 2020-12-05 20:47 | EDM.PDOC ---
ED HPI GENERAL MEDICAL PROBLEM - General Chief Complaint: Syncope Stated Complaint: [facility] Time Seen by Provider: 12/05/20 20:03 Source of Information: Reports: Patient, EMS, Detention Records History Limitations: Reports: Other (Patient does have some mild dementia so I am not sure how much of the history I can rely on though he seems to be coherent with what I am asking him tonight.) - History of Present Illness INITIAL COMMENTS - FREE TEXT/NARRATIVE: This is an 85-year-old male. He is a resident at [facility]. Apparently for some months he has been having episodes of dizziness and lightheadedness when he is lying down when he is walking and when he sitting on the toilet. These are near syncopal episodes but he denies actually passing out. Apparently this evening he had another dizzy spell and lightheadedness and was brought to the ER by the ambulance. When the ambulance arrived his blood sugar was 140 and the long-term reported that his blood pressure when he was having the spell was 70/60 and he was diaphoretic as well. When they arrived he was 82/60. Patient himself denies any palpitations when he has this dizziness or lightheadedness. He has a history of renal insufficiency and hypotension and he is a noninsulin- dependent diabetic. He also has mild dementia. He does have a history of hypothyroidism as well. He denies any history of cardiac problems or congestive heart failure. He does complain of generalized pain and weakness in his legs and when he eats he gets some abdominal discomfort. bilat legs Pain Score (Numeric/FACES): 4 - Related Data Allergies Allergy/AdvReac Type Severity Reaction Status Date / Time No Known Allergies Allergy Verified 12/05/20 20:10 Home Meds: Home Meds Atropine/Diphenoxylate [Diphenoxylate-Atropine] 2 tab PO QID PRN 03/05/20 [History] Donepezil [Aricept] 10 mg PO BEDTIME 03/05/20 [History] Fluticasone Propionate [Flonase] 1 spray NASBOTH BID 03/05/20 [History] Glimepiride 1 mg PO DAILY 03/05/20 [History] Levothyroxine 75 mcg PO DAILY 03/05/20 [History] Memantine HCl [Namenda] 10 mg PO BID 03/05/20 [History] Omeprazole 20 mg PO BID 03/05/20 [History] Rosuvastatin [Crestor] 20 mg PO DAILY 03/05/20 [History] Rivaroxaban [Xarelto] 10 mg PO DAILY #30 tablet 03/11/20 [Rx] Tamsulosin [Flomax] 0.4 mg PO PCBREAKFAST #20 cap.er 03/11/20 [Rx] Acetaminophen/oxyCODONE [Percocet 325-5 MG] 325 mg PO TID PRN 09/07/20 [History] Albuterol Sulfate [Proair Hfa] 2 puff IH Q4H PRN 09/07/20 [History] cephALEXin [Keflex] 500 mg PO Q8H #21 cap 12/05/20 [Rx] Past Medical History HEENT History: Reports: Allergic Rhinitis, Cataract Cardiovascular History: Reports: Blood Clots/VTE/DVT, High Cholesterol, Hypertension Other Cardiovascular History: venous thrombosis and embolism. Atherosclerotic heart disease. Respiratory History: Reports: Asthma, Sleep Apnea Gastrointestinal History: Reports: GERD, Other (See Below) Other Gastrointestinal History: gallstones Genitourinary History: Reports: Acute Renal Failure, BPH Other Genitourinary History: kidney stone, Musculoskeletal History: Reports: Other (See Below) Other Musculoskeletal History: R femur fx Other Neuro History: dementia, memory loss Psychiatric History: Reports: Dementia Other Psychiatric History: (W07.132)--cognitive communication deficit. Endocrine/Metabolic History: Reports: Diabetes, Type II, Hypothyroidism - Infectious Disease History Infectious Disease History: Reports: Novel Coronavirus - Past Surgical History Musculoskeletal Surgical History: Reports: Knee Replacement, Other (See Below) Other Musculoskeletal Surgeries/Procedures:: left hip replacement, left knee replacement Social & Family History - Family History Family Medical History: No Pertinent Family History - Caffeine Use Caffeine Use: Reports: Coffee ED ROS GENERAL - Review of Systems Review Of Systems: See Below Reason Not Obtained: Patient is not real good with his review of systems. Constitutional: Reports: Weakness, Fatigue, Diaphoresis. Denies: Fever, Chills HEENT: Reports: No Symptoms Respiratory: Denies: Shortness of Breath, Cough Cardiovascular: Reports: No Symptoms Endocrine: Reports: Fatigue, High Glucose GI/Abdominal: Reports: Abdominal Pain, Constipation, Nausea. Denies: Diarrhea, Vomiting : Reports: Dysuria Musculoskeletal: Reports: Other (He has generalized myalgias and arthralgias) Skin: Reports: No Symptoms Neurological: Reports: Confusion, Dizziness, Difficulty Walking. Denies: Syncope Psychiatric: Reports: Other (Patient appears to have a flat affect) ED EXAM, DIZZINESS - Physical Exam Exam: See Below Exam Limited By: Other (Patient does have some mild dementia) General Appearance: Alert, WD/WN, No Apparent Distress Eye Exam: Bilateral Eye: PERRL Ears: Normal External Exam, Normal Canal, Normal TMs Nose: Normal Inspection Throat/Mouth: Normal Lips, Normal Oropharynx, Normal Voice, No Airway Compromise, Other (The tongue is somewhat dry) Head Exam: Normocephalic Neck: Supple, Non-Tender. No: Carotid Bruit Respiratory/Chest: No Respiratory Distress, Lungs Clear, Normal Breath Sounds Cardiovascular: Regular Rate, Rhythm, No Murmur GI/Abdominal: Soft, Non-Tender Neurological: Other (The patient is awake and appears to be able to describe to me what was going on. He knows he is in the ER but he has no idea of the day or the time.) Back Exam: Decreased Range of Motion Extremities: Normal Inspection, Other (He moves his extremities upper and lower equally and symmetrically) Psychiatric: Flat Affect Skin Exam: Warm, Dry #1 Interpretation EKG Date: 12/05/20 Time: 20:40 EKG Interpretation Comments: Normal sinus rhythm, rate of 63, there is a few PACs noted. But there is no acute ST or T wave changes and there is no ischemia noted. Course - Vital Signs Last Recorded V/S: Last Vital Signs Temp 96.9 F 12/05/20 20:01 Pulse 67 12/05/20 20:01 Resp 20 12/05/20 20:01 BP 145/64 H 12/05/20 20:01 Pulse Ox 100 12/05/20 20:01 Orthostatic Blood Pressure [ 156/136 Standing] Orthostatic Blood Pressure [ 141/70 Sitting] Orthostatic Blood Pressure [ 139/69 Supine] - Orders/Labs/Meds Orders: Active Orders 24 hr Category Date Time Status EKG 12 Lead [EKG Documentation Completion] [RC] STAT Care 12/05/20 20:10 Active Holter Monitor 48 Hours [RC] .PRN Care 12/05/20 22:01 Active Orthostatic Vital Signs [RC] ASDIRECTED Care 12/05/20 20:44 Active Labs: Laboratory Tests 12/05/20 12/05/20 12/05/20 Range/Units 20:35 20:35 21:16 WBC 9.10 H (4.23-9.07) K/mm3 RBC 3.75 L (4.63-6.08) M/mm3 Hgb 10.8 L D (13.7-17.5) gm/dl Hct 33.9 L (40.1-51.0) % MCV 90.4 D (79.0-92.2) fl MCH 28.8 (25.7-32.2) pg MCHC 31.9 L (32.2-35.5) g/dl RDW Std Deviation 51.1 H (35.1-43.9) fL Plt Count 215 (163-337) K/mm3 MPV 11.3 (9.4-12.3) fl Neut % (Auto) 70.9 H (34.0-67.9) % Lymph % (Auto) 16.2 L (21.8-53.1) % [place] % (Auto) 12.0 (5.3-12.2) % Eos % (Auto) 0.3 L (0.8-7.0) Baso % (Auto) 0.2 (0.1-1.2) % Neut # (Auto) 6.45 H (1.78-5.38) K/mm3 Lymph # (Auto) 1.47 (1.32-3.57) K/mm3 [place] # (Auto) 1.09 H (0.30-0.82) K/mm3 Eos # (Auto) 0.03 L (0.04-0.54) K/mm3 Baso # (Auto) 0.02 (0.01-0.08) K/mm3 Sodium 140 (136-145) mEq/L Potassium 4.5 (3.5-5.1) mEq/L Chloride 106 (98-107) mEq/L Carbon Dioxide 28 (21-32) mEq/L Anion Gap 10.5 (5-15) BUN 35 H (7-18) mg/dL Creatinine 2.0 H (0.7-1.3) mg/dL Est Cr Clr Drug Dosing TNP Estimated GFR (MDRD) 32 (>60) mL/min BUN/Creatinine Ratio 17.5 (14-18) Glucose 230 H (83-115) mg/dL Calcium 8.5 (8.5-10.1) mg/dL Total Bilirubin 0.7 (0.2-1.0) mg/dL AST 13 L (15-37) U/L ALT 17 (16-63) U/L Alkaline Phosphatase 129 H (46-116) U/L Troponin I < 0.017 (0.00-0.056) ng/mL Total Protein 5.6 L (6.4-8.2) g/dl Albumin 1.8 L (3.4-5.0) g/dl Globulin 3.8 gm/dL Albumin/Globulin Ratio 0.5 L (1-2) TSH 3rd Generation 0.793 (0.358-3.74) uIU/mL Urine Color Yellow (Yellow) Urine Appearance Cloudy H (Clear) Urine pH 5.5 (5.0-8.0) Ur Specific [place] 1.025 (1.005-1.030) Urine Protein 1+ H (Negative) Urine Glucose (UA) Negative (Negative) Urine Ketones Negative (Negative) Urine Occult Blood Trace-intact H (Negative) Urine Nitrite Positive H (Negative) Urine Bilirubin Negative (Negative) Urine Urobilinogen 0.2 (0.2-1.0) Ur Leukocyte Esterase 3+ H (Negative) Urine RBC 5-10 H (0-5) /hpf Urine WBC 50-75 H (0-5) /hpf Urine WBC Clumps Few (NOT SEEN) /hpf Ur Squamous Epith Cells 0-5 (0-5) /hpf Urine Bacteria Moderate H (FEW) /hpf Urine Mucus Few (FEW) /hpf Meds: Medications Discontinued Medications Generic Name Dose Route Start Last Admin Trade Name Freq PRN Reason Stop Dose Admin Ceftriaxone Sodium 1 gm/ 0 gm 12/05/20 22:25 Lidocaine HCl 2.1 ml IM 12/05/20 22:26 ONETIME ONE Sodium Chloride 500 mls @ 999 mls/hr 12/05/20 21:29 12/05/20 21:46 Normal Saline IV 12/05/20 21:59 999 mls/hr .BOLUS ONE Administration - Re-Assessments/Exams Free Text/Narrative Re-Assessment/Exam: 12/05/20 20:49 Does not appear to have orthostatic vital signs from lying down to standing. He is somewhat weak however and required 2 people to assist him to stand. Denied feeling dizzy or lightheaded when they stood him up in the ER. 12/05/20 21:34 The patient has been doing fine in the ER with no complaints of dizziness or lightheadedness. His lab work showed a white count of 9.1 with a hemoglobin of 10.8. His BUN and creatinine are 35 and 2.0. His thyroid is normal. His troponin is also normal. I looked at his history he does not appear to have had an event monitor placed on him so we are going to go ahead and place when here in the ER for him to take back to the long-term and hopefully we can determine why he is having this dizzy spells and near syncope. He does appear to be somewhat dry as well so we will give him 500 cc of normal saline IV. Departure - Departure Time of Disposition: 21:59 Disposition: Home, Self-Care 01 Condition: Fair Clinical Impression: Syncope, near, Dehydration, Renal insufficiency Anemia Qualifiers: Anemia type: unspecified type Qualified Code(s): D64.9 - Anemia, unspecified Urinary tract infection Qualifiers: Urinary tract infection type: acute cystitis Hematuria presence: with hematuria Qualified Code(s): N30.01 - Acute cystitis with hematuria - Discharge Information *PRESCRIPTION DRUG MONITORING PROGRAM REVIEWED*: Not Applicable *COPY OF PRESCRIPTION DRUG MONITORING REPORT IN PATIENT VAISHALI: Not Applicable Prescriptions: cephALEXin [Keflex] 500 mg PO Q8H #21 cap Instructions: Chronic Kidney Disease, Adult, Dehydration, Elderly, [id number] Referrals: Jaguar Caldwell MD [Primary Care Provider] - Forms: ED Department Discharge Additional Instructions: Anytime the patient has or complains of dizziness or lightheadedness or feels like he is going to collapse please document this so we can see if there is an event then please return the Holtor monitor for it to be read so we can see if rachel forrest is having some sort of arrhythmia causing these symptoms. It should be noted that he is somewhat dehydrated and needs to drink more fluids but not over drink fluids. You were also noted to have a urinary tract infection and received a shot of Rocephin in the ER and you are to take the Keflex 3 times a day for the next 7 days. Please have him follow-up with his family doctor for recheck this coming week, return to the ER if needed Sepsis Event Note (ED) - Evaluation Sepsis Screening Result: No Definite Risk - Focused Exam Vital Signs: Vital Signs Temp Pulse Resp BP Pulse Ox 12/05/20 20:01 96.9 F 67 20 145/64 H 100 - My Orders Last 24 Hours: My Active Orders 12/05/20 20:10 EKG 12 Lead [EKG Documentation Completion] [RC] STAT 12/05/20 20:44 Orthostatic Vital Signs [RC] ASDIRECTED 12/05/20 22:01 Holter Monitor 48 Hours [RC] .PRN - Assessment/Plan Last 24 Hours: My Active Orders 12/05/20 20:10 EKG 12 Lead [EKG Documentation Completion] [RC] STAT 12/05/20 20:44 Orthostatic Vital Signs [RC] ASDIRECTED 12/05/20 22:01 Holter Monitor 48 Hours [RC] .PRN
[2020-12-05] MEDS ORDERED: Sodium Chloride 0.9% 500 ML IV ONE (21:29)
[2020-12-05] MEDS ORDERED: cefTRIAXone 1 GM, Lidocaine 1% 2.1 ML IM ONE ×2 (22:25)
== END 2020-12-05 23:00 | disposition home or self-care (01) ==
LOC: JD.ED 19:54
DX: N30.01 Acute cystitis with hematuria (principal); D64.9 Anemia, unspecified; E86.0 Dehydration; N28.9 Disorder of kidney and ureter, unspecified; E78.00 Pure hypercholesterolemia, unspecified; I10 Essential (primary) hypertension; N40.0 Benign prostatic hyperplasia without lower urinary tract symptoms; J45.909 Unspecified asthma, uncomplicated; K21.9 Gastro-esophageal reflux disease without esophagitis; F03.90 Unspecified dementia, unspecified severity, without behavioral disturbance, psychotic disturbance, mood disturbance, and anxiety; E11.9 Type 2 diabetes mellitus without complications; E03.9 Hypothyroidism, unspecified; Z79.84 Long term (current) use of oral hypoglycemic drugs; Z86.718 Personal history of other venous thrombosis and embolism; Z79.01 Long term (current) use of anticoagulants; Z79.899 Other long term (current) drug therapy
CPT/HCPCS: 36415; 80053; 81001; 84443; 84484; 85025; 93005; 93225; 93226; 96372; 99284; J0696; J2001; J7030; 93010

== ENCOUNTER 2021-01-30 19:08 | Emergency (ER) | payer MEDICARE, OTHER ==
--- NOTE | 2021-01-30 19:31 | EDM.PDOC ---
ED HPI GENERAL MEDICAL PROBLEM - General Chief Complaint: Gastrointestinal Problem Stated Complaint: UNABLE TO USE BATHROOM Time Seen by Provider: 01/30/21 19:29 Source of Information: Reports: Family (Daughter) History Limitations: Reports: Physical Impairment (Patient has advanced dementia) - History of Present Illness INITIAL COMMENTS - FREE TEXT/NARRATIVE: Mr. Shepherd is a pleasantly demented 85-year-old gentleman who is now brought to the ED by his daughter from [facility], with a complaint of rectal urgency and no bowel movement for the past 3 days. The patient's daughter is not aware of the patient being given any [id number] or home remedies to try to treat his constipation over the past few days, however, paperwork from the skilled nursing indicates that he was given 1 Fleets enema and 1 Dulcolax today. The patient's daughter tells me that the patient does not ordinarily suffer from constipation. She is not aware of any other complaints besides the constipation issue, such as fever, cough, or abdominal pain. No recent opioids. Here in the ED, the patient is found to be hemodynamically stable, afebrile, saturating 99% on room air. According to the patient's daughter, prior to 3 days ago, the patient has not had a recent fever, chills, sore throat, ear pain, nasal or sinus congestion, cough, dyspnea, chest pain, palpitations, nausea, vomiting, constipation, diarrhea, abdominal pain, urinary symptoms, recent weight gain or weight loss, recent bloody bowel movements or black bowel movements, recent joint aches, headaches, or rashes. The patient's PCP is Dr. Jaguar Caldwell. His Neurologist is Dr. Fabio Palencia. His Orthopedic Surgeon is Dr. Nestor Turner. Rectal Pain Score (Numeric/FACES): 5 - Related Data Allergies Allergy/AdvReac Type Severity Reaction Status Date / Time No Known Allergies Allergy Verified 12/05/20 20:10 Home Meds: Home Meds Fluticasone Propionate [Flonase] 1 spray NASBOTH BID 03/05/20 [History] Glimepiride 1 mg PO DAILY 03/05/20 [History] Levothyroxine 75 mcg PO DAILY 03/05/20 [History] Memantine HCl [Namenda] 10 mg PO BID 03/05/20 [History] Omeprazole 20 mg PO DAILY 03/05/20 [History] Rosuvastatin [Crestor] 20 mg PO DAILY 03/05/20 [History] Rivaroxaban [Xarelto] 10 mg PO DAILY #30 tablet 03/11/20 [Rx] Albuterol Sulfate [Proair Hfa] 2 puff IH Q4H 09/07/20 [History] Acetaminophen 1 tab PO TID PRN 01/30/21 [History] Calcium Carbonate [Tums [place]] 2 tab PO Q6HR PRN 01/30/21 [History] Calcium Polycarbophil [Fiber Laxative] 1 tab PO DAILY 01/30/21 [History] Digoxin [Digox] 125 mcg PO DAILY 01/30/21 [History] Metoprolol Tartrate 25 mg PO BID 01/30/21 [History] bisacodyL [Dulcolax] 10 mg PO DAILY PRN 01/30/21 [History] Past Medical History HEENT History: Reports: Allergic Rhinitis Cardiovascular History: Reports: Afib, Blood Clots/VTE/DVT (LLE following a Lt LLUVIA), CAD, High Cholesterol, Hypertension Respiratory History: Reports: Asthma, Sleep Apnea (no nightly CPAP or BiPAP) Gastrointestinal History: Reports: GERD Genitourinary History: Reports: BPH, Renal Calculus Musculoskeletal History: Reports: Fracture (right hip) Neurological History: Reports: Alzheimers Disease Endocrine/Metabolic History: Reports: Diabetes, Type II, Hypothyroidism - Infectious Disease History Infectious Disease History: Reports: Novel Coronavirus (dx'd 09/01/2020) - Past Surgical History HEENT Surgical History: Reports: Cataract Surgery (bilateral) Musculoskeletal Surgical History: Reports: Hip Replacement (left), Knee Replacement (left), Other (See Below) (Right hip pinning) Social & Family History - Tobacco Use Tobacco Use Status *Q: Never Tobacco User - Caffeine Use Caffeine Use: Reports: Coffee - Alcohol Use Alcohol Use History: No - Recreational Drug Use Recreational Drug Use: No - Living Situation & Occupation Living situation: Reports: ( is at [facility] Extended Care Facility ([facility]) Occupation: Retired ED ROS GENERAL - Review of Systems Review Of Systems: Comprehensive ROS is negative, except as noted in HPI. ED EXAM, GI/ABD - Physical Exam Exam: See Below Exam Limited By: No Limitations General Appearance: Alert, WD/WN, No Apparent Distress Eyes: Bilateral: Normal Appearance, EOMI Ears: Normal External Exam, Hearing Grossly Normal Nose: Normal Inspection Throat/Mouth: Normal Inspection, Normal Lips, No Airway Compromise Head: Atraumatic, Normocephalic Neck: Normal Inspection, Full Range of Motion Respiratory/Chest: No Respiratory Distress, Lungs Clear, Normal Breath Sounds, No Accessory Muscle Use Cardiovascular: Normal Peripheral Pulses, Regular Rate, Rhythm, No Edema, No Gallop, No JVD, No Murmur, No Rub GI/Abdominal Exam: Normal Bowel Sounds, Soft, Non-Tender, No Organomegaly, No Distention, No Abnormal Bruit, No Mass (Male) Exam: Normal Inspection Rectal (Males) Exam: Other (Incontinence of stool noted. Relatively soft stool in the rectum.). No: Hemorrhoids, Perirectal Abscess Back Exam: Normal Inspection, Full Range of Motion, NT Extremities: Normal Inspection, Normal Range of Motion, No Pedal Edema, Normal Capillary Refill Neurological: Alert, No Motor/Sensory Deficits Psychiatric: Normal Affect Skin Exam: Warm, Dry, Intact, Normal Color, No Rash Course - Vital Signs Last Recorded V/S: Last Vital Signs Temp 36.1 C 01/30/21 19:14 Pulse 76 01/30/21 19:14 Resp 20 01/30/21 19:14 BP 108/72 01/30/21 19:14 Pulse Ox 99 01/30/21 19:14 - Orders/Labs/Meds Orders: Active Orders 24 hr Category Date Time Status Abdomen 1V Flat [CR] Stat Exams 01/30/21 19:29 Taken Meds: Medications Discontinued Medications Generic Name Dose Route Start Last Admin Trade Name Dagoberto PRN Reason Stop Dose Admin Acetaminophen 650 mg 01/30/21 20:43 01/30/21 21:01 Tylenol PO 01/30/21 20:44 650 mg NOW ONE Administration - Re-Assessments/Exams Free Text/Narrative Re-Assessment/Exam: 01/30/21 19:30 Due to no ED beds being available at this time, the patient is currently in the waiting room, however, based on the triage note, I have ordered an abdominal 1 view flat x-ray, to evaluate for constipation. 01/30/21 20:35 Abdominal flatplate x-ray appears to demonstrate a small amount of stool in the cecum, and in the transverse colon, but no significant stool seen elsewhere, including the rectum. Otherwise nonspecific bowel gas pattern. There is mild lumbar scoliosis. Left total hip arthroplasty hardware is visible. Formal read per the Radiologist pending. 01/30/21 20:44 On rectal examination, I was surprised to find that there is some stool in the rectum, however, it is fairly soft, the patient should be able to pass it. Disimpaction is not needed. No external hemorrhoids or suggestion of a perirectal abscess was found. The patient's daughter tells me that when he needs to have a bowel movement skilled nursing, he is simply taken to the bathroom. We will have Jai take him to the bathroom as soon as she is available. The patient's daughter requested that I give him some acetaminophen. I have ordered 650 mg po. 01/30/21 21:45 Notified by Jai ALTAMIRANO that the patient had a bowel movement and is now feeling much better. I will discharge him back to the skilled nursing. Departure - Departure Time of Disposition: 21:45 Disposition: Home, Self-Care 01 Condition: Good Clinical Impression: Difficulty defecating - Discharge Information *PRESCRIPTION DRUG MONITORING PROGRAM REVIEWED*: Not Applicable *COPY OF PRESCRIPTION DRUG MONITORING REPORT IN PATIENT VAISHALI: Not Applicable Referrals: Jaguar Caldwell MD [Primary Care Provider] - Fabio Palencia MD [Ordering Only Provider] - Nestor Turner MD [Physician] - Forms: ED Department Discharge Additional Instructions: Mr. Shepherd was seen in the emergency room for rectal urgency and no bowel movement for the past 3 days. Work-up in the ER included an abdominal x-ray, which did not show a significant amount of stool in the colon. On rectal examination, he had some soft stool, which he was able to pass on his own, with relief of his symptoms. Going forward, we recommend that he eat a high-fiber diet with plenty of fluids. If any other problems, please do not hesitate to return Mr. Shepherd to the ER. Sepsis Event Note (ED) - Evaluation Sepsis Screening Result: No Definite Risk - Focused Exam Vital Signs: Vital Signs Temp Pulse Resp BP Pulse Ox 01/30/21 19:14 36.1 C 76 20 108/72 99 - My Orders Last 24 Hours: My Active Orders 01/30/21 19:29 Abdomen 1V Flat [CR] Stat - Assessment/Plan Last 24 Hours: My Active Orders 01/30/21 19:29 Abdomen 1V Flat [CR] Stat
[2021-01-30] MEDS ORDERED: Acetaminophen 325 MG Tab PO ONE (20:43)
[2021-01-30 22:16] VITALS: BP 100/60; PULSE 74
--- NOTE | 2021-02-02 12:04 | CR ---
Abdomen: Supine view the abdomen was obtained. Bowel gas pattern is felt to be within normal limits at this time. Left hip prosthesis is seen. Scattered endplate spurring is noted within the spine. Mild vascular calcification is noted. Surgical clips are seen from prior cholecystectomy. Impression: 1. Findings as noted above. Nothing acute is appreciated. Diagnostic code #2
== END 2021-01-30 22:17 | disposition home or self-care (01) ==
LOC: JD.ED 19:08
DX: R15.0 Incomplete defecation (principal); I48.91 Unspecified atrial fibrillation; I25.10 Atherosclerotic heart disease of native coronary artery without angina pectoris; E78.00 Pure hypercholesterolemia, unspecified; I10 Essential (primary) hypertension; J45.909 Unspecified asthma, uncomplicated; K21.9 Gastro-esophageal reflux disease without esophagitis; E11.9 Type 2 diabetes mellitus without complications; E03.9 Hypothyroidism, unspecified; G30.9 Alzheimer's disease, unspecified; F02.80 Dementia in other diseases classified elsewhere, unspecified severity, without behavioral disturbance, psychotic disturbance, mood disturbance, and anxiety; Z86.16 Personal history of COVID-19; Z79.899 Other long term (current) drug therapy; Z79.01 Long term (current) use of anticoagulants
CPT/HCPCS: 74018; 99283; A9270; 93010; 99284

== ENCOUNTER 2021-05-10 20:16 | Emergency (ER) | payer MEDICARE, OTHER, MEDICAID ==
[2021-05-10 20:23] VITALS: BP 169/85; PULSE 94
--- NOTE | 2021-05-10 21:29 | EDM.PDOC ---
ED HPI GENERAL MEDICAL PROBLEM - General Chief Complaint: Abdominal Pain Stated Complaint: [facility] Time Seen by Provider: 05/10/21 21:29 - History of Present Illness INITIAL COMMENTS - FREE TEXT/NARRATIVE: 85-year-old male presents the emergency room with abdominal and chest pain. The patient went down to eat supper everything went fine when he came back he had a sharp pain that went from his upper abdomen lower chest on the right side shot over to the left. This lasted a few minutes. The patient has had episodes like this several times over the last several weeks. They are not associated with breathing difficulties or diaphoresis no nausea no vomiting. Patient has no other complaints at this time - Related Data Allergies Allergy/AdvReac Type Severity Reaction Status Date / Time No Known Allergies Allergy Verified 05/10/21 20:23 Home Meds: Home Meds Fluticasone Propionate [Flonase] 1 spray NASBOTH BID 03/05/20 [History] Glimepiride 1 mg PO DAILY 03/05/20 [History] Levothyroxine 75 mcg PO DAILY 03/05/20 [History] Memantine HCl [Namenda] 10 mg PO BID 03/05/20 [History] Omeprazole 40 mg PO DAILY 03/05/20 [History] Rosuvastatin [Crestor] 20 mg PO DAILY 03/05/20 [History] Rivaroxaban [Xarelto] 10 mg PO DAILY #30 tablet 03/11/20 [Rx] Albuterol Sulfate [Proair Hfa] 2 puff IH QID 09/07/20 [History] Acetaminophen 325 mg PO TID PRN 01/30/21 [History] Calcium Carbonate [Tums [place]] 400 mg PO Q6HR PRN 01/30/21 [History] Calcium Polycarbophil [Fiber Laxative] 1 tab PO DAILY 01/30/21 [History] Digoxin [Digox] 125 mcg PO DAILY 01/30/21 [History] Metoprolol Tartrate 25 mg PO BID 01/30/21 [History] bisacodyL [Dulcolax] 10 mg PO DAILY PRN 01/30/21 [History] Docusate Sodium/Sennosides [Senna Plus] 1 each PO DAILY 05/10/21 [History] Magnesium Oxide 250 mg PO DAILY 05/10/21 [History] Tamsulosin [Tamsulosin 24 Hr] 0.4 mg PO DAILY 05/10/21 [History] guaiFENesin/Dextromethorphan [Tussin Dm Syrup] 10 ml PO Q4H PRN 05/10/21 [History] Past Medical History HEENT History: Reports: Allergic Rhinitis Cardiovascular History: Reports: Afib, Blood Clots/VTE/DVT, CAD, High Cholesterol, Hypertension Other Cardiovascular History: venous thrombosis and embolism. Atherosclerotic heart disease. 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 Endocrine/Metabolic History: Reports: Diabetes, Type II, Hypothyroidism - Infectious Disease History Infectious Disease History: Reports: Novel Coronavirus - Past Surgical History HEENT Surgical History: Reports: Cataract Surgery Musculoskeletal Surgical History: Reports: Hip Replacement, Knee Replacement, Other (See Below) Other Musculoskeletal Surgeries/Procedures:: left hip replacement, left knee replacement Social & Family History - Family History Family Medical History: No Pertinent Family History - Tobacco Use Tobacco Use Status *Q: Never Tobacco User - Caffeine Use Caffeine Use: Reports: None - Recreational Drug Use Recreational Drug Use: No - Living Situation & Occupation Living situation: Reports: ( is at [facility] Extended Care Facility ([facility]) Occupation: Retired ED ROS GENERAL - Review of Systems Review Of Systems: See Below Constitutional: Reports: No Symptoms HEENT: Reports: No Symptoms Respiratory: Reports: No Symptoms Cardiovascular: Reports: Chest Pain (See HPI) Endocrine: Reports: No Symptoms GI/Abdominal: Denies: Abdominal Pain, Constipation, Diarrhea, Nausea, Vomiting : Reports: No Symptoms Musculoskeletal: Reports: No Symptoms Skin: Reports: No Symptoms Neurological: Reports: No Symptoms ED EXAM, GENERAL - Physical Exam Exam: See Below Exam Limited By: No Limitations General Appearance: Alert, No Apparent Distress Head: Atraumatic, Normocephalic Neck: Normal Inspection, Supple, Non-Tender, Full Range of Motion Respiratory/Chest: No Respiratory Distress, Lungs Clear, Normal Breath Sounds Cardiovascular: Regular Rate, Rhythm, No Edema, No Murmur GI/Abdominal: Normal Bowel Sounds, Soft, Non-Tender, Other (Very normal abdomina l exam). No: Guarding, Rigid, Rebound Back Exam: Normal Inspection. No: CVA Tenderness (L), CVA Tenderness (R) Extremities: Normal Inspection, No Pedal Edema Neurological: Alert, Oriented, Normal Cognition #1 Interpretation EKG Date: 05/10/21 Rhythm: Other (All sinus driven with some irregularity) P-Wave: Present QRS: Other (Low voltage in the limb leads early transition) ST-T: Normal QT: Normal Comparison: No Change (No significant change noted from December 05, 2020) EKG Interpretation Comments: Abnormal EKG sinus irregularity Course - Vital Signs Last Recorded V/S: Last Vital Signs Temp 36.3 C 05/10/21 20:19 Pulse 94 05/10/21 20:19 Resp 16 05/10/21 20:19 BP 169/85 H 05/10/21 20:19 Pulse Ox 98 05/10/21 20:19 - Orders/Labs/Meds Orders: Active Orders 24 hr Category Date Time Status Chest 1V Frontal [CR] Stat Exams 05/10/21 21:49 Taken CULTURE URINE [MREF] Urgent Lab 05/10/21 22:30 Received Labs: Laboratory Tests 05/10/21 05/10/21 05/10/21 Range/Units 20:20 20:20 20:20 WBC 6.91 (4.23-9.07) K/mm3 RBC 4.10 L (4.63-6.08) M/mm3 Hgb 12.2 L (13.7-17.5) gm/dl Hct 37.2 L (40.1-51.0) % MCV 90.7 (79.0-92.2) fl MCH 29.8 (25.7-32.2) pg MCHC 32.8 (32.2-35.5) g/dl RDW Std Deviation 47.6 H (35.1-43.9) fL Plt Count 200 (163-337) K/mm3 MPV 11.1 (9.4-12.3) fl Neut % (Auto) 50.7 (34.0-67.9) % Lymph % (Auto) 36.2 (21.8-53.1) % Lewis % (Auto) 10.7 (5.3-12.2) % Eos % (Auto) 1.4 (0.8-7.0) Baso % (Auto) 0.7 (0.1-1.2) % Neut # (Auto) 3.50 (1.78-5.38) K/mm3 Lymph # (Auto) 2.50 (1.32-3.57) K/mm3 Lewis # (Auto) 0.74 (0.30-0.82) K/mm3 Eos # (Auto) 0.10 (0.04-0.54) K/mm3 Baso # (Auto) 0.05 (0.01-0.08) K/mm3 Sodium 139 (136-145) mEq/L Potassium 4.4 (3.5-5.1) mEq/L Chloride 103 (98-107) mEq/L Carbon Dioxide 28 (21-32) mEq/L Anion Gap 12.4 (5-15) BUN 25 H (7-18) mg/dL Creatinine 1.5 H (0.7-1.3) mg/dL Est Cr Clr Drug Dosing 32.80 mL/min Estimated GFR (MDRD) 44 (>60) mL/min BUN/Creatinine Ratio 16.7 (14-18) Glucose 153 H (70-99) mg/dL Calcium 8.4 L (8.5-10.1) mg/dL Total Bilirubin 0.4 (0.2-1.0) mg/dL AST 18 (15-37) U/L ALT 21 (16-63) U/L Alkaline Phosphatase 106 (46-116) U/L Troponin I < 0.017 (0.00-0.056) ng/mL C-Reactive Protein <0.2 (<1.0) mg/dL Total Protein 5.9 L (6.4-8.2) g/dl Albumin 2.4 L (3.4-5.0) g/dl Globulin 3.5 gm/dL Albumin/Globulin Ratio 0.7 L (1-2) Urine Color (Yellow) Urine Appearance (Clear) Urine pH (5.0-8.0) Ur Specific [place] (1.005-1.030) Urine Protein (Negative) Urine Glucose (UA) (Negative) Urine Ketones (Negative) Urine Occult Blood (Negative) Urine Nitrite (Negative) Urine Bilirubin (Negative) Urine Urobilinogen (0.2-1.0) Ur Leukocyte Esterase (Negative) Urine RBC (0-5) /hpf Urine WBC (0-5) /hpf Ur Squamous Epith Cells (0-5) /hpf Urine Bacteria (FEW) /hpf Urine Mucus (FEW) /hpf 05/10/21 Range/Units 22:30 WBC (4.23-9.07) K/mm3 RBC (4.63-6.08) M/mm3 Hgb (13.7-17.5) gm/dl Hct (40.1-51.0) % MCV (79.0-92.2) fl MCH (25.7-32.2) pg MCHC (32.2-35.5) g/dl RDW Std Deviation (35.1-43.9) fL Plt Count (163-337) K/mm3 MPV (9.4-12.3) fl Neut % (Auto) (34.0-67.9) % Lymph % (Auto) (21.8-53.1) % Lewis % (Auto) (5.3-12.2) % Eos % (Auto) (0.8-7.0) Baso % (Auto) (0.1-1.2) % Neut # (Auto) (1.78-5.38) K/mm3 Lymph # (Auto) (1.32-3.57) K/mm3 Lewis # (Auto) (0.30-0.82) K/mm3 Eos # (Auto) (0.04-0.54) K/mm3 Baso # (Auto) (0.01-0.08) K/mm3 Sodium (136-145) mEq/L Potassium (3.5-5.1) mEq/L Chloride (98-107) mEq/L Carbon Dioxide (21-32) mEq/L Anion Gap (5-15) BUN (7-18) mg/dL Creatinine (0.7-1.3) mg/dL Est Cr Clr Drug Dosing mL/min Estimated GFR (MDRD) (>60) mL/min BUN/Creatinine Ratio (14-18) Glucose (70-99) mg/dL Calcium (8.5-10.1) mg/dL Total Bilirubin (0.2-1.0) mg/dL AST (15-37) U/L ALT (16-63) U/L Alkaline Phosphatase (46-116) U/L Troponin I (0.00-0.056) ng/mL C-Reactive Protein (<1.0) mg/dL Total Protein (6.4-8.2) g/dl Albumin (3.4-5.0) g/dl Globulin gm/dL Albumin/Globulin Ratio (1-2) Urine Color Yellow (Yellow) Urine Appearance Clear (Clear) Urine pH 7.0 (5.0-8.0) Ur Specific [place] 1.015 (1.005-1.030) Urine Protein Negative (Negative) Urine Glucose (UA) Negative (Negative) Urine Ketones Negative (Negative) Urine Occult Blood Negative (Negative) Urine Nitrite Negative (Negative) Urine Bilirubin Negative (Negative) Urine Urobilinogen 0.2 (0.2-1.0) Ur Leukocyte Esterase 2+ H (Negative) Urine RBC Not seen (0-5) /hpf Urine WBC 10-20 H (0-5) /hpf Ur Squamous Epith Cells 0-5 (0-5) /hpf Urine Bacteria Moderate H (FEW) /hpf Urine Mucus Few (FEW) /hpf - Re-Assessments/Exams Free Text/Narrative Re-Assessment/Exam: 05/10/21 22:51 Labs are nondiagnostic however he has 2+ leukocyte esterase in his urine culture is set up. Patient has been treated for multiple UTIs recently he is not having any symptoms at this point we will wait and see what the culture grows out. His troponin is negative his EKG shows a sinus irregularity no acute ST-T wave changes. Chest x-ray is nondiagnostic. Troponin negative repeat examination no abdominal pain. He would like to go home we will discharge soon. Departure - Departure Time of Disposition: 22:53 Disposition: DC/Tfer to SNF 03 Clinical Impression: Atypical chest pain - Discharge Information Instructions: Nonspecific Chest Pain, Adult, [id number] Referrals: Jaguar Caldwell MD [Primary Care Provider] - Forms: ED Department Discharge Additional Instructions: Return to the emergency room with any questions problems or concerning symptoms. Follow-up with your doctor this next week for recheck. Sepsis Event Note (ED) - Evaluation Sepsis Screening Result: No Definite Risk - Focused Exam Vital Signs: Vital Signs Temp Pulse Resp BP Pulse Ox 05/10/21 20:19 36.3 C 94 16 169/85 H 98 - My Orders Last 24 Hours: My Active Orders 05/10/21 21:49 Chest 1V Frontal [CR] Stat 05/10/21 22:30 CULTURE URINE [MREF] Urgent - Assessment/Plan Last 24 Hours: My Active Orders 05/10/21 21:49 Chest 1V Frontal [CR] Stat 05/10/21 22:30 CULTURE URINE [MREF] Urgent
--- NOTE | 2021-05-11 09:55 | CR ---
Chest: Portable view of the chest was obtained. Comparison: Prior chest x-ray of 03/05/20. Heart size and mediastinum are within normal limits. Severe degenerative change is seen within the left shoulder. Mild scoliosis and mild degenerative change is noted within the spine. Bony structures are osteopenic. Lungs are clear with no acute parenchymal change. Impression: 1. Findings as noted above. 2. Nothing acute is appreciated on frontal chest x-ray. Diagnostic code #2
== END 2021-05-10 23:15 ==
LOC: JD.ED 20:16
DX: R07.89 Other chest pain (principal); I25.10 Atherosclerotic heart disease of native coronary artery without angina pectoris; E78.00 Pure hypercholesterolemia, unspecified; I10 Essential (primary) hypertension; E11.9 Type 2 diabetes mellitus without complications; E03.9 Hypothyroidism, unspecified; Z86.16 Personal history of COVID-19; Z79.899 Other long term (current) drug therapy
CPT/HCPCS: 36415; 71045; 71045-26; 80053; 81001; 84484; 85025; 86140; 87086; 87186; 93005; 93010; 99284; 99285-25

== ENCOUNTER 2021-05-12 09:05 | Emergency (ER) | payer MEDICARE, OTHER, MEDICAID ==
[2021-05-12 09:13] VITALS: BP 150/81; PULSE 55
[2021-05-12] MEDS ORDERED: Sodium Chloride 0.9% 10 ML Syringe FLUSH PRN (09:31)
--- NOTE | 2021-05-12 09:33 | EDM.PDOC ---
ED HPI GENERAL MEDICAL PROBLEM - General Chief Complaint: Syncope Stated Complaint: [facility] Time Seen by Provider: 05/12/21 09:09 Source of Information: Reports: Patient, EMS History Limitations: Reports: Other (pt has recent memory loss) - History of Present Illness INITIAL COMMENTS - FREE TEXT/NARRATIVE: 85-year-old male presents the emergency department today with a syncopal episode. The patient is a resident of [facility] with a history of dementia. He has a poor historian and when questioning him he does not recall anything that happened. Per the [facility] nurses report, she states that the patient was sitting at breakfast in the dining room when he bent over forward and became unresponsive for what they thought was approximately 2 minutes. They state that when he aroused, he complained of chest pain with radiation to his left jaw and shoulder he also complained of increased shortness of breath at that time. They state that his blood pressure was 77 over 40s. They also notify me that he does have a history of hypotension. Patient was recently seen in the ER about 2 days ago and was started on Flomax during that visit. The patient denies any chest pain while in the emergency department, he denies any nausea, vomiting, diarrhea, shortness of breath, cough, or chills or headache. He denies any urinary symptoms. Nursing staff does not make mention of the patient having any recent fever. Onset: Today, Sudden - Related Data Allergies Allergy/AdvReac Type Severity Reaction Status Date / Time No Known Allergies Allergy Verified 05/10/21 20:23 Home Meds: Home Meds Fluticasone Propionate [Flonase] 1 spray NASBOTH BID 03/05/20 [History] Glimepiride 1 mg PO DAILY 03/05/20 [History] Levothyroxine 75 mcg PO DAILY 03/05/20 [History] Memantine HCl [Namenda] 10 mg PO BID 03/05/20 [History] Omeprazole 40 mg PO DAILY 03/05/20 [History] Rosuvastatin [Crestor] 20 mg PO DAILY 03/05/20 [History] Rivaroxaban [Xarelto] 10 mg PO DAILY #30 tablet 03/11/20 [Rx] Albuterol Sulfate [Proair Hfa] 2 puff IH QID 09/07/20 [History] Acetaminophen 325 mg PO TID PRN 01/30/21 [History] Calcium Carbonate [Tums [place]] 400 mg PO Q6HR PRN 01/30/21 [History] Calcium Polycarbophil [Fiber Laxative] 625 mg PO DAILY 01/30/21 [History] Digoxin [Digox] 125 mcg PO DAILY 01/30/21 [History] Metoprolol Tartrate 25 mg PO BID 01/30/21 [History] bisacodyL [Dulcolax] 10 mg PO DAILY PRN 01/30/21 [History] Docusate Sodium/Sennosides [Senna Plus] 1 each PO DAILY 05/10/21 [History] Magnesium Oxide 250 mg PO DAILY 05/10/21 [History] Tamsulosin [Tamsulosin 24 Hr] 0.4 mg PO DAILY 05/10/21 [History] guaiFENesin/Dextromethorphan [Tussin Dm Syrup] 10 ml PO Q4H PRN 05/10/21 [History] cephALEXin [Keflex] 500 mg PO QID #28 cap 05/12/21 [Rx] cephALEXin [Keflex] 500 mg PO QID #28 cap 05/12/21 [Rx] Past Medical History HEENT History: Reports: Allergic Rhinitis Cardiovascular History: Reports: Afib, Blood Clots/VTE/DVT, CAD, High Cholesterol, Hypertension Other Cardiovascular History: venous thrombosis and embolism. Atherosclerotic heart disease. 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 Endocrine/Metabolic History: Reports: Diabetes, Type II, Hypothyroidism - Infectious Disease History Infectious Disease History: Reports: Novel Coronavirus - Past Surgical History HEENT Surgical History: Reports: Cataract Surgery Musculoskeletal Surgical History: Reports: Hip Replacement, Knee Replacement, Other (See Below) Other Musculoskeletal Surgeries/Procedures:: left hip replacement, left knee replacement Social & Family History - Family History Family Medical History: No Pertinent Family History - Tobacco Use Tobacco Use Status *Q: Unknown Ever Used Tobacco - Caffeine Use Caffeine Use: Reports: None - Living Situation & Occupation Living situation: Reports: ( is at [facility]), Extended Care Facility ([facility]) Occupation: Retired ED ROS GENERAL - Review of Systems Review Of Systems: See Below Constitutional: Denies: Fever, Chills, Malaise, Diaphoresis, Decreased Appetite HEENT: Reports: No Symptoms Respiratory: Reports: Shortness of Breath. Denies: Cough, Sputum Cardiovascular: Reports: Chest Pain, Blood Pressure Problem (history of hypotension), Syncope. Denies: Dyspnea on Exertion, Edema, Palpitations Endocrine: Reports: No Symptoms GI/Abdominal: Reports: No Symptoms. Denies: Diarrhea, Nausea, Vomiting : Reports: Other (recently started on flomax) Musculoskeletal: Reports: No Symptoms Skin: Reports: No Symptoms Neurological: Reports: Confusion (history of dementia) Psychiatric: Reports: No Symptoms Hematologic/Lymphatic: Reports: No Symptoms Immunologic: Reports: No Symptoms - Physical Exam Exam: See Below Exam Limited By: Other (history of dementia; patient is a poor historian) General Appearance: Alert, WD/WN, No Apparent Distress Eye Exam: Bilateral Eye: EOMI, PERRL Ears: Normal External Exam, Hearing Grossly Normal Nose: Normal Inspection Throat/Mouth: Normal Inspection, Normal Lips, Normal Oropharynx, Normal Voice Head Exam: Atraumatic, Normocephalic Neck: Normal Inspection, Supple Respiratory/Chest: No Respiratory Distress, Lungs Clear, Normal Breath Sounds, No Accessory Muscle Use, Chest Non-Tender Cardiovascular: Normal Peripheral Pulses, Regular Rate, Rhythm, No Edema, No Murmur, Bradycardia GI/Abdominal: Normal Bowel Sounds, Soft, Non-Tender, No Distention (Male) Exam: Deferred Rectal (Males) Exam: Deferred Neuro Exam (Abbreviated): Alert, CN II-XII Intact, Normal Cognition, Other (neuro exam difficult to perform as the patient has a difficult time following commands). No: Oriented Back Exam: Normal Inspection, Full Range of Motion Extremities: Normal Inspection, No Pedal Edema, Normal Capillary Refill Psychiatric: Normal Affect, Normal Mood Skin Exam: Warm, Dry, Intact, Normal Color, No Rash #1 Interpretation EKG Date: 05/12/21 Time: 09:20 Rhythm: NSR Rate (Beats/Min): 65 [place]: Normal P-Wave: Present QRS: Normal ST-T: Normal QT: Normal EKG Interpretation Comments: Per Dr. Morgan interpretation: normal sinus rhythm rate 65; multiple PVCs; low voltage inferior leads Course - Vital Signs Text/Narrative:: Upon assessment the patient is alert however he does have significant memory issues. Full neuro exam was completed however difficult to perform due to the patient being unable to follow commands. Nursing staff state that the patient did not fall and hit his head, he slumped over in his chair while eating breakfast. Denies any complaints of chest pain or shortness of breath at the time of my assessment. I have ordered labs to include a CBC, CMP, CRP, magnesium level, and troponin. I have also ordered a dig level on this patient. We will obtain an EKG and a portable view of the chest. Last Recorded V/S: Last Vital Signs Temp 97.1 F 05/12/21 09:08 Pulse 55 L 05/12/21 09:08 Resp 11 L 05/12/21 09:08 BP 150/81 H 05/12/21 09:08 Pulse Ox 93 L 05/12/21 09:08 - Orders/Labs/Meds Orders: Active Orders 24 hr Category Date Time Status EKG Documentation Completion [RC] STAT Care 05/12/21 09:31 Active CULTURE URINE [MREF] Stat Lab 05/12/21 10:30 Received Sodium Chloride 0.9% [Saline Flush] Med 05/12/21 09:31 Active 10 ml FLUSH ASDIRECTED PRN Saline Lock Insert [OM.PC] Stat Oth 05/12/21 09:31 Ordered Medication Orders Sodium Chloride (Sodium Chloride 0.9% 10 Ml Syringe) 10 ml FLUSH ASDIRECTED PRN PRN Reason: Keep Vein Open Last Admin: 05/12/21 09:39 Dose: 10 ml Documented by: TANI Labs: Laboratory Tests 05/12/21 05/12/21 05/12/21 Range/Units 09:15 09:15 09:15 WBC 7.11 (4.23-9.07) K/mm3 RBC 4.23 L (4.63-6.08) M/mm3 Hgb 12.6 L (13.7-17.5) gm/dl Hct 38.3 L (40.1-51.0) % MCV 90.5 (79.0-92.2) fl MCH 29.8 (25.7-32.2) pg MCHC 32.9 (32.2-35.5) g/dl RDW Std Deviation 48.2 H (35.1-43.9) fL Plt Count 212 (163-337) K/mm3 MPV 11.5 (9.4-12.3) fl Neut % (Auto) 53.1 (34.0-67.9) % Lymph % (Auto) 34.6 (21.8-53.1) % Clinch % (Auto) 10.7 (5.3-12.2) % Eos % (Auto) 1.0 (0.8-7.0) Baso % (Auto) 0.6 (0.1-1.2) % Neut # (Auto) 3.78 (1.78-5.38) K/mm3 Lymph # (Auto) 2.46 (1.32-3.57) K/mm3 Clinch # (Auto) 0.76 (0.30-0.82) K/mm3 Eos # (Auto) 0.07 (0.04-0.54) K/mm3 Baso # (Auto) 0.04 (0.01-0.08) K/mm3 Sodium 143 (136-145) mEq/L Potassium 4.6 (3.5-5.1) mEq/L Chloride 109 H (98-107) mEq/L Carbon Dioxide 27 (21-32) mEq/L Anion Gap 11.6 (5-15) BUN 25 H (7-18) mg/dL Creatinine 1.6 H (0.7-1.3) mg/dL Est Cr Clr Drug Dosing TNP Estimated GFR (MDRD) 41 (>60) mL/min BUN/Creatinine Ratio 15.6 (14-18) Glucose 117 H (70-99) mg/dL POC Glucose 102 H (70-99) mg/dL Calcium 8.5 (8.5-10.1) mg/dL Magnesium 1.7 L (1.8-2.4) mg/dL Total Bilirubin 0.5 (0.2-1.0) mg/dL AST 16 (15-37) U/L ALT 19 (16-63) U/L Alkaline Phosphatase 100 (46-116) U/L Troponin I < 0.017 (0.00-0.056) ng/mL C-Reactive Protein <0.2 (<1.0) mg/dL Total Protein 5.7 L (6.4-8.2) g/dl Albumin 2.3 L (3.4-5.0) g/dl Globulin 3.4 gm/dL Albumin/Globulin Ratio 0.7 L (1-2) Urine Color (Yellow) Urine Appearance (Clear) Urine pH (5.0-8.0) Ur Specific [place] (1.005-1.030) Urine Protein (Negative) Urine Glucose (UA) (Negative) Urine Ketones (Negative) Urine Occult Blood (Negative) Urine Nitrite (Negative) Urine Bilirubin (Negative) Urine Urobilinogen (0.2-1.0) Ur Leukocyte Esterase (Negative) Urine RBC (0-5) /hpf Urine WBC (0-5) /hpf Urine WBC Clumps (NOT SEEN) /hpf Ur Squamous Epith Cells (0-5) /hpf Urine Bacteria (FEW) /hpf Urine Mucus (FEW) /hpf Digoxin (0.9-2.0) ng/mL 05/12/21 05/12/21 Range/Units 09:15 10:30 WBC (4.23-9.07) K/mm3 RBC (4.63-6.08) M/mm3 Hgb (13.7-17.5) gm/dl Hct (40.1-51.0) % MCV (79.0-92.2) fl MCH (25.7-32.2) pg MCHC (32.2-35.5) g/dl RDW Std Deviation (35.1-43.9) fL Plt Count (163-337) K/mm3 MPV (9.4-12.3) fl Neut % (Auto) (34.0-67.9) % Lymph % (Auto) (21.8-53.1) % Clinch % (Auto) (5.3-12.2) % Eos % (Auto) (0.8-7.0) Baso % (Auto) (0.1-1.2) % Neut # (Auto) (1.78-5.38) K/mm3 Lymph # (Auto) (1.32-3.57) K/mm3 Clinch # (Auto) (0.30-0.82) K/mm3 Eos # (Auto) (0.04-0.54) K/mm3 Baso # (Auto) (0.01-0.08) K/mm3 Sodium (136-145) mEq/L Potassium (3.5-5.1) mEq/L Chloride (98-107) mEq/L Carbon Dioxide (21-32) mEq/L Anion Gap (5-15) BUN (7-18) mg/dL Creatinine (0.7-1.3) mg/dL Est Cr Clr Drug Dosing Estimated GFR (MDRD) (>60) mL/min BUN/Creatinine Ratio (14-18) Glucose (70-99) mg/dL POC Glucose (70-99) mg/dL Calcium (8.5-10.1) mg/dL Magnesium (1.8-2.4) mg/dL Total Bilirubin (0.2-1.0) mg/dL AST (15-37) U/L ALT (16-63) U/L Alkaline Phosphatase (46-116) U/L Troponin I (0.00-0.056) ng/mL C-Reactive Protein (<1.0) mg/dL Total Protein (6.4-8.2) g/dl Albumin (3.4-5.0) g/dl Globulin gm/dL Albumin/Globulin Ratio (1-2) Urine Color Yellow (Yellow) Urine Appearance Slt cloudy H (Clear) Urine pH 7.0 (5.0-8.0) Ur Specific [place] 1.020 (1.005-1.030) Urine Protein Trace H (Negative) Urine Glucose (UA) Negative (Negative) Urine Ketones Negative (Negative) Urine Occult Blood Negative (Negative) Urine Nitrite Positive H (Negative) Urine Bilirubin Negative (Negative) Urine Urobilinogen 0.2 (0.2-1.0) Ur Leukocyte Esterase 2+ H (Negative) Urine RBC Not seen (0-5) /hpf Urine WBC >100 H (0-5) /hpf Urine WBC Clumps Few (NOT SEEN) /hpf Ur Squamous Epith Cells 0-5 (0-5) /hpf Urine Bacteria Many H (FEW) /hpf Urine Mucus Rare (FEW) /hpf Digoxin 0.3 L (0.9-2.0) ng/mL Meds: Medications Generic Name Dose Route Start Last Admin Trade Name Freq PRN Reason Stop Dose Admin Sodium Chloride 10 ml 05/12/21 09:31 05/12/21 09:39 Sodium Chloride 0.9% 10 Ml Syringe FLUSH 10 ml ASDIRECTED PRN Administration Keep Vein Open - Re-Assessments/Exams Free Text/Narrative Re-Assessment/Exam: 05/12/21 10:16 Radiologist impression portable view of the chest: Heart size and mediastinum are within normal limits. Lungs are clear. With no acute parenchymal change. Scoliosis is noted within the spine. Scattered degenerative change within the spine is seen. Degenerative changes also noted within the left shoulder. 05/12/21 10:17 Otology reveals a WBC of 7.11, hemoglobin 12.6, hematocrit 38.3, platelet count 212 Chemistry reveals a sodium of 143, potassium of 4.6, chloride 109, anion gap 11.6, BUN 25, creatinine 1.6, GFR 41, glucose 117, magnesium 1.7, troponin less than 0.017, C-reactive protein less than 0.2. Digoxin level is 0.3. 05/12/21 10:30 Upon review of the patient's [facility] records. His heart rate has consistently been 45-55 over the course of the month of April. The patient does take metoprolol tartrate 25 mg twice daily and he is also on digoxin 0.125 daily. I spoke with the patient's primary care physician, Dr. Caldwell, and he recommends that I discontinue the patient's metoprolol. Patient will be discharged back to [facility] once I have urinalysis back. 05/12/21 11:06 Urinalysis reveals a trace of protein, nitrite positive, 2+ leukocyte esterase, urine RBC is not seen, urine WBC greater than 100, urine bacteria many Patient will be started on Keflex 500 mg 4 times daily for 7 days. [facility] will be [facility] to the [facility]. Departure - Departure Time of Disposition: 10:43 Disposition: DC/Tfer to [facility] Condition: Fair Clinical Impression: Syncope Qualifiers: Syncope type: unspecified Qualified Code(s): R55 - Syncope and collapse UTI (urinary tract infection) Qualifiers: Urinary tract infection type: acute cystitis Hematuria presence: without hematuria Qualified Code(s): N30.00 - Acute cystitis without hematuria - Discharge Information Prescriptions: cephALEXin [Keflex] 500 mg PO QID #28 cap cephALEXin [Keflex] 500 mg PO QID #28 cap Instructions: Syncope, [id number], Urinary Tract Infection, Adult, [id number] Referrals: Jaguar Caldwell MD [Primary Care Provider] - Forms: ED Department Discharge Additional Instructions: Koko was seen in the ED with complaints of a syncopal episode this morning. Full cardiac workup was completed and this was unremarkable. Urinalysis does reveal a urinary tract infection. He will be started on Keflex 500mg four times daily for seven days. Dr. Caldwell was called regarding the patient's ED visit and he recommends that the patient's metoprolol be discontinued. Pt will follow up in the clinic with Dr. Caldwell on Tuesday, May 18, 2021. This appt has already been scheduled per the patient's and daughter. Should his condition worsen or change, do not hesitate returning to the ED. Sepsis Event Note (ED) - Evaluation Sepsis Screening Result: No Definite Risk - Focused Exam Vital Signs: Vital Signs Temp Pulse Resp BP Pulse Ox 05/12/21 09:08 97.1 F 55 L 11 L 150/81 H 93 L - My Orders Last 24 Hours: My Active Orders 05/12/21 09:31 EKG Documentation Completion [RC] STAT Sodium Chloride 0.9% [Saline Flush] 10 ml FLUSH ASDIRECTED PRN Saline Lock Insert [OM.PC] Stat 05/12/21 10:30 CULTURE URINE [MREF] Stat - Assessment/Plan Last 24 Hours: My Active Orders 05/12/21 09:31 EKG Documentation Completion [RC] STAT Sodium Chloride 0.9% [Saline Flush] 10 ml FLUSH ASDIRECTED PRN Saline Lock Insert [OM.PC] Stat 05/12/21 10:30 CULTURE URINE [MREF] Stat
--- NOTE | 2021-05-12 10:14 | CR ---
Chest: Portable view of the chest was obtained. Comparison: Prior chest x-ray of 05/10/21. Heart size and mediastinum are within normal limits. Lungs are clear with no acute parenchymal change. Scoliosis is noted within the spine. Scattered degenerative change within the spine is seen. Degenerative change is also noted within the left shoulder. Impression: 1. Osseous findings as noted above which are stable. 2. Nothing acute is seen. Diagnostic code #2
== END 2021-05-12 11:48 ==
LOC: JD.ED 09:05
DX: R55 Syncope and collapse (principal); N30.00 Acute cystitis without hematuria; E11.9 Type 2 diabetes mellitus without complications; E03.9 Hypothyroidism, unspecified; I25.10 Atherosclerotic heart disease of native coronary artery without angina pectoris; E78.00 Pure hypercholesterolemia, unspecified; I10 Essential (primary) hypertension; K21.9 Gastro-esophageal reflux disease without esophagitis; Z79.899 Other long term (current) drug therapy; Z86.16 Personal history of COVID-19
CPT/HCPCS: 36415; 71045; 71045-26; 80053; 80162; 81001; 82947; 83735; 84484; 85025; 86140; 87086; 87186; 93005; 93010; 99284; 99285-25

== ENCOUNTER 2021-06-21 10:11 | Emergency (ER) | payer MEDICARE, OTHER, MEDICAID ==
--- NOTE | 2021-06-21 10:29 | EDM.PDOC ---
ED HPI GENERAL MEDICAL PROBLEM - General Chief Complaint: Trauma Stated Complaint: FALL/ HEAD INJURY Time Seen by Provider: 06/21/21 10:12 - History of Present Illness INITIAL COMMENTS - FREE TEXT/NARRATIVE: 85-year-old male comes into the emergency room after falling at the shelter. Patient does have a history of Alzheimer's. But he went to go from his chair to a Exercise bike. He fell trying to get on the bike and hit his head. Patient is on blood thinners for atrial fibrillation. He takes Xarelto in the evening. Patient has no recollection of what actually happened. The history have is from the shelter. Family confirms this history of A. fib and dementia. - Related Data Allergies Allergy/AdvReac Type Severity Reaction Status Date / Time No Known Allergies Allergy Verified 06/21/21 10:25 Home Meds: Home Meds Fluticasone Propionate [Flonase] 1 spray NASBOTH BID 03/05/20 [History] Glimepiride 1 mg PO DAILY 03/05/20 [History] Levothyroxine 75 mcg PO DAILY 03/05/20 [History] Memantine HCl [Namenda] 10 mg PO BID 03/05/20 [History] Rosuvastatin [Crestor] 20 mg PO DAILY 03/05/20 [History] Albuterol Sulfate [Proair Hfa] 2 puff IH QID 09/07/20 [History] Acetaminophen 325 mg PO TID PRN 01/30/21 [History] Calcium Carbonate [Tums [place]] 400 mg PO Q6HR PRN 01/30/21 [History] Calcium Polycarbophil [Fiber Laxative] 625 mg PO DAILY 01/30/21 [History] bisacodyL [Dulcolax] 10 mg PO DAILY PRN 01/30/21 [History] Docusate Sodium/Sennosides [Senna Plus] 1 each PO DAILY 05/10/21 [History] Magnesium Oxide 250 mg PO DAILY 05/10/21 [History] Tamsulosin [Tamsulosin 24 Hr] 0.4 mg PO DAILY 05/10/21 [History] guaiFENesin/Dextromethorphan [Tussin Dm Syrup] 10 ml PO Q4H PRN 05/10/21 [History] Nitrofurantoin Monohyd/M-Cryst [Macrobid 100 mg Capsule] 100 mg PO BID #14 capsule 06/21/21 [Rx] Rivaroxaban [Xarelto] 10 mg PO BEDTIME 06/21/21 [History] Xylitol [Xylimelts] 550 mg MM BEDTIME 06/21/21 [History] Past Medical History HEENT History: Reports: Allergic Rhinitis Cardiovascular History: Reports: Afib, Blood Clots/VTE/DVT, CAD, High Cholesterol, Hypertension Other Cardiovascular History: venous thrombosis and embolism. Atherosclerotic heart disease. Respiratory History: Reports: Asthma, Sleep Apnea Gastrointestinal History: Reports: GERD Other Gastrointestinal History: gallstones Genitourinary History: Reports: BPH, Renal Calculus Other Genitourinary History: kidney stone, Musculoskeletal History: Reports: Fracture Other Musculoskeletal History: R femur fx Neurological History: Reports: Alzheimers Disease Other Neuro History: dementia, memory loss Psychiatric History: Reports: Alzheimers Disease, Dementia Other Psychiatric History: (R65.712)--cognitive communication deficit. Endocrine/Metabolic History: Reports: Diabetes, Type II, Hypothyroidism - Infectious Disease History Infectious Disease History: Reports: Novel Coronavirus - Past Surgical History HEENT Surgical History: Reports: Cataract Surgery Musculoskeletal Surgical History: Reports: Hip Replacement, Knee Replacement, Other (See Below) Other Musculoskeletal Surgeries/Procedures:: left hip replacement, left knee replacement Social & Family History - Family History Family Medical History: No Pertinent Family History - Caffeine Use Caffeine Use: Reports: None - Living Situation & Occupation Living situation: Reports: ( is at [facility] Extended Care Facility ([facility]) Occupation: Retired Review of Systems - Review of Systems Review Of Systems: See Below Constitutional: Reports: No Symptoms Eyes: Reports: No Symptoms Ears: Reports: No Symptoms Nose: Reports: No Symptoms Mouth/Throat: Reports: No Symptoms Respiratory: Reports: No Symptoms Cardiovascular: Reports: No Symptoms GI/Abdominal: Reports: No Symptoms Genitourinary: Reports: No Symptoms Musculoskeletal: Reports: No Symptoms Neurological: Denies: Headache Psychiatric: Reports: No Symptoms ED EXAM, GENERAL - Physical Exam Exam: See Below Exam Limited By: No Limitations General Appearance: Alert, No Apparent Distress Eye Exam: Bilateral Eye: Normal Inspection, PERRL Ears: Normal External Exam, Normal Canal, Hearing Grossly Normal, Normal TMs Nose: Normal Inspection, Normal Mucosa, No Blood Throat/Mouth: Normal Inspection, Normal Lips, Normal Teeth, Normal Gums, Normal Oropharynx, Normal Voice, No Airway Compromise Head: Other (Superficial abrasion anterior top of the head) Neck: Normal Inspection, Supple, Non-Tender. No: Lymphadenopathy (L), Lymphadenopathy (R), Tender Lateral, Tender Midline Respiratory/Chest: No Respiratory Distress, Lungs Clear, Normal Breath Sounds Cardiovascular: Regular Rate, Rhythm, No Edema, No Murmur Neurological: Alert, No Motor/Sensory Deficits #1 Interpretation EKG Date: 06/21/21 Rhythm: Other (Probable A. fib versus sinus irregularity) Pioneer: Normal P-Wave: Variable QRS: Other (Low voltage extremity leads) QT: Prolonged Comparison: No Change (No significant change from 05/10/2021) Course - Vital Signs Last Recorded V/S: Last Vital Signs Temp 37.3 C 06/21/21 12:30 Pulse 80 06/21/21 12:30 Resp 20 06/21/21 12:30 BP 142/73 H 06/21/21 12:30 Pulse Ox 99 06/21/21 12:30 - Orders/Labs/Meds Orders: Active Orders 24 hr Category Date Time Status EKG Documentation Completion [RC] STAT Care 06/21/21 10:31 Active Insert Graves Catheter [Insert Urinary Catheter] [OM.PC] Care 06/21/21 10:45 Ordered Stat Urinary Catheter Assessment [RC] ASDIRECTED Care 06/21/21 11:05 Active CULTURE URINE [MREF] Stat Lab 06/21/21 10:45 Received Magnesium Sulfate/Water [Magnesium Sulfate in Water 2 Med 06/21/21 12:03 Active GM/50 ML] 2 gm Premix Bag 1 bag IV ONETIME Medication Orders Magnesium Sulfate 2 gm/ Premix 50 mls @ 25 mls/hr IV ONETIME ONE Stop: 06/21/21 14:02 Last Admin: 06/21/21 12:25 Dose: 25 mls/hr Documented by: JOURDAN Labs: Laboratory Tests 06/21/21 06/21/21 06/21/21 Range/Units 10:45 10:53 10:53 WBC 7.12 (4.23-9.07) K/mm3 RBC 3.74 L (4.63-6.08) M/mm3 Hgb 11.3 L (13.7-17.5) gm/dl Hct 34.8 L (40.1-51.0) % MCV 93.0 H (79.0-92.2) fl MCH 30.2 (25.7-32.2) pg MCHC 32.5 (32.2-35.5) g/dl RDW Std Deviation 50.5 H (35.1-43.9) fL Plt Count 203 (163-337) K/mm3 MPV 10.9 (9.4-12.3) fl Neut % (Auto) 67.5 (34.0-67.9) % Lymph % (Auto) 21.3 L (21.8-53.1) % [place] % (Auto) 10.0 (5.3-12.2) % Eos % (Auto) 0.7 L (0.8-7.0) Baso % (Auto) 0.4 (0.1-1.2) % Neut # (Auto) 4.80 (1.78-5.38) K/mm3 Lymph # (Auto) 1.52 (1.32-3.57) K/mm3 [place] # (Auto) 0.71 (0.30-0.82) K/mm3 Eos # (Auto) 0.05 (0.04-0.54) K/mm3 Baso # (Auto) 0.03 (0.01-0.08) K/mm3 PT 13.0 H (9.7-12.0) SECONDS INR 1.22 APTT 31.0 (21.7-31.4) SECONDS Sodium (136-145) mEq/L Potassium (3.5-5.1) mEq/L Chloride (98-107) mEq/L Carbon Dioxide (21-32) mEq/L Anion Gap (5-15) BUN (7-18) mg/dL Creatinine (0.7-1.3) mg/dL Est Cr Clr Drug Dosing mL/min Estimated GFR (MDRD) (>60) mL/min BUN/Creatinine Ratio (14-18) Glucose (70-99) mg/dL Calcium (8.5-10.1) mg/dL Magnesium (1.8-2.4) mg/dL Total Bilirubin (0.2-1.0) mg/dL AST (15-37) U/L ALT (16-63) U/L Alkaline Phosphatase (46-116) U/L Total Protein (6.4-8.2) g/dl Albumin (3.4-5.0) g/dl Globulin gm/dL Albumin/Globulin Ratio (1-2) Urine Color Yellow (Yellow) Urine Appearance Slt cloudy H (Clear) Urine pH 6.0 (5.0-8.0) Ur Specific [place] 1.020 (1.005-1.030) Urine Protein Trace H (Negative) Urine Glucose (UA) Negative (Negative) Urine Ketones Negative (Negative) Urine Occult Blood Negative (Negative) Urine Nitrite Negative (Negative) Urine Bilirubin Negative (Negative) Urine Urobilinogen 0.2 (0.2-1.0) Ur Leukocyte Esterase 1+ H (Negative) Urine RBC Not seen (0-5) /hpf Urine WBC 10-20 H (0-5) /hpf Urine WBC Clumps Few (NOT SEEN) /hpf Ur Epithelial Cells Not seen (0-5) /hpf Urine Bacteria Many H (FEW) /hpf Urine Mucus Not seen (FEW) /hpf 06/21/21 06/21/21 Range/Units 10:53 10:53 WBC (4.23-9.07) K/mm3 RBC (4.63-6.08) M/mm3 Hgb (13.7-17.5) gm/dl Hct (40.1-51.0) % MCV (79.0-92.2) fl MCH (25.7-32.2) pg MCHC (32.2-35.5) g/dl RDW Std Deviation (35.1-43.9) fL Plt Count (163-337) K/mm3 MPV (9.4-12.3) fl Neut % (Auto) (34.0-67.9) % Lymph % (Auto) (21.8-53.1) % [place] % (Auto) (5.3-12.2) % Eos % (Auto) (0.8-7.0) Baso % (Auto) (0.1-1.2) % Neut # (Auto) (1.78-5.38) K/mm3 Lymph # (Auto) (1.32-3.57) K/mm3 [place] # (Auto) (0.30-0.82) K/mm3 Eos # (Auto) (0.04-0.54) K/mm3 Baso # (Auto) (0.01-0.08) K/mm3 PT (9.7-12.0) SECONDS INR APTT (21.7-31.4) SECONDS Sodium 143 (136-145) mEq/L Potassium 4.6 (3.5-5.1) mEq/L Chloride 109 H (98-107) mEq/L Carbon Dioxide 30 (21-32) mEq/L Anion Gap 8.6 (5-15) BUN 26 H (7-18) mg/dL Creatinine 1.6 H (0.7-1.3) mg/dL Est Cr Clr Drug Dosing 31.92 mL/min Estimated GFR (MDRD) 41 (>60) mL/min BUN/Creatinine Ratio 16.3 (14-18) Glucose 258 H (70-99) mg/dL Calcium 8.1 L (8.5-10.1) mg/dL Magnesium 1.4 L (1.8-2.4) mg/dL Total Bilirubin 0.6 (0.2-1.0) mg/dL AST 13 L (15-37) U/L ALT 17 (16-63) U/L Alkaline Phosphatase 99 (46-116) U/L Total Protein 5.3 L (6.4-8.2) g/dl Albumin 2.1 L (3.4-5.0) g/dl Globulin 3.2 gm/dL Albumin/Globulin Ratio 0.7 L (1-2) Urine Color (Yellow) Urine Appearance (Clear) Urine pH (5.0-8.0) Ur Specific [place] (1.005-1.030) Urine Protein (Negative) Urine Glucose (UA) (Negative) Urine Ketones (Negative) Urine Occult Blood (Negative) Urine Nitrite (Negative) Urine Bilirubin (Negative) Urine Urobilinogen (0.2-1.0) Ur Leukocyte Esterase (Negative) Urine RBC (0-5) /hpf Urine WBC (0-5) /hpf Urine WBC Clumps (NOT SEEN) /hpf Ur Epithelial Cells (0-5) /hpf Urine Bacteria (FEW) /hpf Urine Mucus (FEW) /hpf Meds: Medications Generic Name Dose Route Start Last Admin Trade Name Freq PRN Reason Stop Dose Admin Magnesium Sulfate 2 gm/ Premix 50 mls @ 25 mls/hr 06/21/21 12:03 06/21/21 12:25 IV 06/21/21 14:02 25 mls/hr ONETIME ONE Administration Discontinued Medications Generic Name Dose Route Start Last Admin Trade Name Dagoberto PRN Reason Stop Dose Admin Nitrofurantoin Macrocrystals 100 mg 06/21/21 12:07 06/21/21 12:20 Nitrofurantoin Monohydrate/Macrocrystalline 100 Mg Cap PO 06/21/21 12:08 100 mg ONETIME ONE Administration - Re-Assessments/Exams Free Text/Narrative Re-Assessment/Exam: 06/21/21 12:08 CT is unremarkable for acute changes. Urinalysis is suggestive of infectious process developing. We will start him on Macrobid 1 twice daily and given 2 g of IV magnesium then increase his oral magnesium. Cephalosporins contraindicated as the patient needs magnesium therapy. Departure - Departure Time of Disposition: 14:07 Disposition: DC/Tfer to [facility] 03 Clinical Impression: Hypomagnesemia Urinary tract infection Qualifiers: Urinary tract infection type: acute cystitis Hematuria presence: without hematuria Qualified Code(s): N30.00 - Acute cystitis without hematuria Syncope Qualifiers: Syncope type: unspecified Qualified Code(s): R55 - Syncope and collapse - Discharge Information Referrals: Jaguar Caldwell MD [Primary Care Provider] - Forms: ED Department Discharge Additional Instructions: Patient will be started on Macrobid one twice daily for 7 days this is sent to [facility] Patient will have his magnesium increased from 250 mg a day to two 250 mg tablets daily. Follow-up with regular physician in 9 to 10 days to recheck urine and magnesium level. Sepsis Event Note (ED) - Focused Exam Vital Signs: Vital Signs Temp Pulse Resp BP Pulse Ox 06/21/21 12:30 37.3 C 80 20 142/73 H 99 06/21/21 10:11 36.2 C 100 16 151/82 H 93 L - My Orders Last 24 Hours: My Active Orders 06/21/21 10:31 EKG Documentation Completion [RC] STAT 06/21/21 10:45 Insert Graves Catheter [Insert Urinary Catheter] [OM.PC] Stat CULTURE URINE [MREF] Stat 06/21/21 11:05 Urinary Catheter Assessment [RC] ASDIRECTED 06/21/21 12:03 Magnesium Sulfate/Water [Magnesium Sulfate in Water 2 GM/50 ML] 2 gm Premix Bag 1 bag IV ONETIME - Assessment/Plan Last 24 Hours: My Active Orders 06/21/21 10:31 EKG Documentation Completion [RC] STAT 06/21/21 10:45 Insert Graves Catheter [Insert Urinary Catheter] [OM.PC] Stat CULTURE URINE [MREF] Stat 06/21/21 11:05 Urinary Catheter Assessment [RC] ASDIRECTED 06/21/21 12:03 Magnesium Sulfate/Water [Magnesium Sulfate in Water 2 GM/50 ML] 2 gm Premix Bag 1 bag IV ONETIME
--- NOTE | 2021-06-21 11:20 | CT ---
Head CT Technique: Multiple axial sections through the brain were obtained. Intravenous contrast was not utilized. Reconstructed coronal and sagittal images were obtained. Comparison: No prior head CT study is available. Findings: Ventricles along with basal cisterns and sulci over the convexities are moderately prominent. No abnormal parenchymal densities are seen. No evidence of intracranial hemorrhage is seen. No midline shift or mass-effect is seen. Bone window settings were obtained which show atherosclerotic calcification within the vertebral vessels and within the carotid siphon. Visualized paranasal sinuses are clear. Minimal mucosal thickening is seen within portions of both mastoid sinuses. No acute calvarial abnormality is appreciated. Impression: 1. Generalized atrophy. 2. Slight mucosal thickening within portions of the mastoid sinuses which are likely incidental. 3. No acute intracranial abnormality is appreciated. Diagnostic code #2
[2021-06-21] MEDS ORDERED: Magnesium Sulfate/Water 2 GM in Premix Bag 1 BAG IV ONE (12:03)
[2021-06-21] MEDS ORDERED: Nitrofurantoin Monohydrate/Macrocrystalline 100 MG Cap PO ONE (12:07)
[2021-06-21 12:31] VITALS: PULSE 80
[2021-06-21 14:19] VITALS: BP 156/79
== END 2021-06-21 14:40 ==
LOC: JD.ED 10:11
DX: R55 Syncope and collapse (principal); N30.00 Acute cystitis without hematuria; I25.10 Atherosclerotic heart disease of native coronary artery without angina pectoris; E83.42 Hypomagnesemia; E78.00 Pure hypercholesterolemia, unspecified; I10 Essential (primary) hypertension; E11.9 Type 2 diabetes mellitus without complications; I48.91 Unspecified atrial fibrillation; E03.9 Hypothyroidism, unspecified; Z79.899 Other long term (current) drug therapy; Z79.01 Long term (current) use of anticoagulants; W18.09XA Striking against other object with subsequent fall, initial encounter; Y92.129 Unspecified place in nursing home as the place of occurrence of the external cause
CPT/HCPCS: 36415; 70450; 80053; 81001; 83735; 85025; 85610; 85730; 87086; 87088; 87186; 93005; 96365; 96366; 99284; A9270; J3475; 93010

== ENCOUNTER 2022-07-20 13:23 | Emergency (ER) | payer MEDICARE, OTHER, MEDICAID ==
[2022-07-20 15:29] VITALS: BP 111/64; PULSE 82
== END 2022-07-20 15:20 ==
LOC: JD.ED 13:23
DX: R07.89 Other chest pain (principal); M25.512 Pain in left shoulder; I25.10 Atherosclerotic heart disease of native coronary artery without angina pectoris; E78.00 Pure hypercholesterolemia, unspecified; I10 Essential (primary) hypertension; K21.9 Gastro-esophageal reflux disease without esophagitis; E11.9 Type 2 diabetes mellitus without complications; E03.9 Hypothyroidism, unspecified; F03.90 Unspecified dementia, unspecified severity, without behavioral disturbance, psychotic disturbance, mood disturbance, and anxiety; Z86.16 Personal history of COVID-19; Z79.899 Other long term (current) drug therapy
CPT/HCPCS: 36415; 70450; 70450-26; 71046; 71046-26; 72125; 72125-26; 73030-26-LT; 73030-LT; 80053; 85025; 99285

== ENCOUNTER 2022-11-08 08:34 | Inpatient (IN) | payer MEDICARE, OTHER, MEDICAID ==
[2022-11-08] MEDS ORDERED: Diltiazem 25 MG/5 ML SDV IVPUSH ONE ×2 (09:21→09:48)
[2022-11-08] MEDS ORDERED: Diltiazem 125 MG in Sodium Chloride 0.9% 100 ML IV SCH (10:15)
[2022-11-08 11:48] LABS: CORONAVIRUS COVID-19 NAA NEGATIVE (NEGATIVE)
[2022-11-08] MEDS ORDERED: Sodium Chloride 0.9% 10 ML Syringe FLUSH PRN (13:55)
[2022-11-08] MEDS ORDERED: Ondansetron 4 MG Tab.DIS PO PRN (14:02)
[2022-11-08] MEDS ORDERED: Docusate Sodium 100 MG Cap PO PRN (14:02)
[2022-11-08] MEDS ORDERED: Ondansetron 4 MG/2 ML SDV IV PRN (14:02)
[2022-11-08] MEDS: cefTRIAXone 2 GM in Sodium Chloride 0.9% 100 ML IV SCH (16:03)
[2022-11-08] MEDS: Memantine 10 MG Tab PO SCH (20:02)
[2022-11-08] MEDS: Fluticasone NASAL Spray 16 GM Bottle NASBOTH SCH (20:02)
[2022-11-08] MEDS: traMADol 50 MG Tab PO PRN (20:02)
[2022-11-08] MEDS: Rivaroxaban 10 MG Tab PO SCH (20:02)
[2022-11-08] MEDS: Acetaminophen 325 MG Tab PO PRN (20:03)
[2022-11-09] MEDS ORDERED: Digoxin 500 MCG/2 ML Amp IVPUSH ONE ×2 (08:00→15:30)
[2022-11-09] MEDS: Levothyroxine 75 MCG Tab PO SCH (08:04)
[2022-11-09] MEDS: Memantine 10 MG Tab PO SCH ×2 (08:04→20:02)
[2022-11-09] MEDS: Folic Acid 1 MG Tab PO SCH (08:04)
[2022-11-09] MEDS: Furosemide 20 MG Tab PO SCH (08:04)
[2022-11-09] MEDS: Tamsulosin 0.4 MG Cap.ER PO SCH (08:08)
[2022-11-09] MEDS: Fluticasone NASAL Spray 16 GM Bottle NASBOTH SCH ×2 (08:08→21:20)
[2022-11-09] MEDS ORDERED: Non-Formulary Medication 1 Each (Olopatadine 2.5 ML Bottle) EYEBOTH SCH (09:00)
[2022-11-09] MEDS ORDERED: Non-Formulary Medication 1 Each (Omeprazole 20 MG Capsule.Dr) PO SCH (09:00)
[2022-11-09] MEDS: Pantoprazole 40 MG Tab.CR PO SCH (09:20)
[2022-11-09] MEDS ORDERED: Metoprolol Tartrate 5 MG/5 ML SDV ONE (11:44)
[2022-11-09] MEDS: OLOPATADINE EYEBOTH SCH (11:52)
[2022-11-09] MEDS ORDERED: Metoprolol Tartrate 50 MG Tab PO SCH ×2 (12:00)
[2022-11-09] MEDS ORDERED: Magnesium Sulfate/Water 2 GM in Premix Bag 1 BAG IV ONE (12:00)
[2022-11-09] MEDS ORDERED: Sodium Chloride 0.9% 500 ML IV ONE (12:00)
[2022-11-09] MEDS ORDERED: Metoprolol Tartrate 5 MG/5 ML SDV IVPUSH ONE (12:00)
[2022-11-09] MEDS: cefTRIAXone 2 GM in Sodium Chloride 0.9% 100 ML IV SCH (15:40)
[2022-11-09] MEDS: Amiodarone 200 MG Tab PO SCH ×2 (15:41→20:02)
[2022-11-09] MEDS: traMADol 50 MG Tab PO PRN (19:56)
[2022-11-09] MEDS: Rivaroxaban 10 MG Tab PO SCH (20:02)
[2022-11-09] MEDS: Metoprolol Tartrate 50 MG Tab PO SCH (20:02)
[2022-11-09] MEDS ORDERED: Digoxin 500 MCG/2 ML Amp IVPUSH SCH (21:30)
[2022-11-10] MEDS: Levothyroxine 75 MCG Tab PO SCH (08:20)
[2022-11-10] MEDS: Memantine 10 MG Tab PO SCH ×2 (08:20→21:39)
[2022-11-10] MEDS: Metoprolol Tartrate 50 MG Tab PO SCH ×3 (08:21→21:39)
[2022-11-10] MEDS: Pantoprazole 40 MG Tab.CR PO SCH (08:23)
[2022-11-10] MEDS: Furosemide 20 MG Tab PO SCH (08:24)
[2022-11-10] MEDS: Amiodarone 200 MG Tab PO SCH ×2 (08:24→21:39)
[2022-11-10] MEDS: Tamsulosin 0.4 MG Cap.ER PO SCH (08:24)
[2022-11-10] MEDS: Folic Acid 1 MG Tab PO SCH (08:25)
[2022-11-10] MEDS: OLOPATADINE EYEBOTH SCH (08:25)
[2022-11-10] MEDS: Fluticasone NASAL Spray 16 GM Bottle NASBOTH SCH ×2 (08:25→22:05)
[2022-11-10] MEDS: cefTRIAXone 2 GM in Sodium Chloride 0.9% 100 ML IV SCH (14:13)
[2022-11-10] MEDS: Rivaroxaban 15 MG Tab PO SCH (21:38)
[2022-11-10] MEDS: traMADol 50 MG Tab PO PRN (21:57)
[2022-11-11] MEDS: Tamsulosin 0.4 MG Cap.ER PO SCH (08:55)
[2022-11-11] MEDS: Furosemide 20 MG Tab PO SCH (08:55)
[2022-11-11] MEDS: Amiodarone 200 MG Tab PO SCH ×2 (08:55→22:00)
[2022-11-11] MEDS: Metoprolol Tartrate 50 MG Tab PO SCH ×3 (08:56→21:56)
[2022-11-11] MEDS: Levothyroxine 75 MCG Tab PO SCH (08:56)
[2022-11-11] MEDS: Pantoprazole 40 MG Tab.CR PO SCH (08:56)
[2022-11-11] MEDS: Fluticasone NASAL Spray 16 GM Bottle NASBOTH SCH ×2 (08:57→22:01)
[2022-11-11] MEDS: Memantine 10 MG Tab PO SCH ×2 (08:57→22:00)
[2022-11-11] MEDS: Folic Acid 1 MG Tab PO SCH (08:58)
[2022-11-11] MEDS: OLOPATADINE EYEBOTH SCH (09:02)
[2022-11-11] MEDS: cefTRIAXone 2 GM in Sodium Chloride 0.9% 100 ML IV SCH (14:02)
[2022-11-11] MEDS: Rivaroxaban 15 MG Tab PO SCH (21:56)
[2022-11-12] MEDS: Levothyroxine 75 MCG Tab PO SCH (08:26)
[2022-11-12] MEDS: Metoprolol Tartrate 50 MG Tab PO SCH ×3 (08:26→20:15)
[2022-11-12] MEDS: Tamsulosin 0.4 MG Cap.ER PO SCH (08:26)
[2022-11-12] MEDS: Memantine 10 MG Tab PO SCH ×2 (08:26→20:15)
[2022-11-12] MEDS: Fluticasone NASAL Spray 16 GM Bottle NASBOTH SCH ×2 (08:27→20:15)
[2022-11-12] MEDS: Furosemide 20 MG Tab PO SCH (08:28)
[2022-11-12] MEDS: OLOPATADINE EYEBOTH SCH (08:28)
[2022-11-12] MEDS: Amiodarone 200 MG Tab PO SCH ×2 (08:28→20:15)
[2022-11-12] MEDS: Pantoprazole 40 MG Tab.CR PO SCH (08:29)
[2022-11-12] MEDS: Folic Acid 1 MG Tab PO SCH (08:43)
[2022-11-12] MEDS: traMADol 50 MG Tab PO PRN (15:53)
[2022-11-12] MEDS: Acetaminophen 325 MG Tab PO PRN (15:53)
[2022-11-12] MEDS: Rivaroxaban 15 MG Tab PO SCH (20:14)
[2022-11-13] MEDS: Furosemide 20 MG Tab PO SCH (08:35)
[2022-11-13] MEDS: Amiodarone 200 MG Tab PO SCH (08:36)
[2022-11-13] MEDS: Levothyroxine 75 MCG Tab PO SCH (08:36)
[2022-11-13] MEDS: Folic Acid 1 MG Tab PO SCH (08:36)
[2022-11-13] MEDS: Tamsulosin 0.4 MG Cap.ER PO SCH (08:36)
[2022-11-13] MEDS: Metoprolol Tartrate 50 MG Tab PO SCH (08:37)
[2022-11-13] MEDS: Memantine 10 MG Tab PO SCH (08:43)
[2022-11-13] MEDS: Fluticasone NASAL Spray 16 GM Bottle NASBOTH SCH (08:44)
[2022-11-13] MEDS: Pantoprazole 40 MG Tab.CR PO SCH (08:44)
[2022-11-13] MEDS: OLOPATADINE EYEBOTH SCH (08:44)
[2022-11-13 08:46] VITALS: BP 140/82
[2022-11-13 11:49] VITALS: PULSE 62
== END 2022-11-13 11:05 | disposition home or self-care (01) | DRG 281 ==
LOC: JD.ED 08:34 → JD.ICU 13:55
PROVIDERS: ADMIT Hospitalist; ATTEND Hospitalist
DX: I48.91 Unspecified atrial fibrillation (principal); R77.8 Other specified abnormalities of plasma proteins; I21.A1 Myocardial infarction type 2; I13.0 Hypertensive heart and chronic kidney disease with heart failure and stage 1 through stage 4 chronic kidney disease, or unspecified chronic kidney disease; N18.4 Chronic kidney disease, stage 4 (severe); I10 Essential (primary) hypertension; J45.909 Unspecified asthma, uncomplicated; N30.00 Acute cystitis without hematuria; J21.9 Acute bronchiolitis, unspecified; N40.0 Benign prostatic hyperplasia without lower urinary tract symptoms; E03.9 Hypothyroidism, unspecified; Z66 Do not resuscitate; E11.9 Type 2 diabetes mellitus without complications; G30.9 Alzheimer's disease, unspecified; Z20.822 Contact with and (suspected) exposure to COVID-19; F02.80 Dementia in other diseases classified elsewhere, unspecified severity, without behavioral disturbance, psychotic disturbance, mood disturbance, and anxiety; E78.00 Pure hypercholesterolemia, unspecified; K59.09 Other constipation; K21.9 Gastro-esophageal reflux disease without esophagitis; I25.10 Atherosclerotic heart disease of native coronary artery without angina pectoris; G47.30 Sleep apnea, unspecified; Z96.642 Presence of left artificial hip joint; Z96.652 Presence of left artificial knee joint; E11.22 Type 2 diabetes mellitus with diabetic chronic kidney disease; Z98.49 Cataract extraction status, unspecified eye; I50.9 Heart failure, unspecified; H54.7 Unspecified visual loss; Z86.718 Personal history of other venous thrombosis and embolism; Z79.01 Long term (current) use of anticoagulants; Z86.16 Personal history of COVID-19; Z79.890 Hormone replacement therapy; Z79.84 Long term (current) use of oral hypoglycemic drugs; Z79.899 Other long term (current) drug therapy
CPT/HCPCS: 0241U; 36415; 71045; 80053; 81001; 83735; 83880; 84443; 84484; 85025; 85610; 85730; 87086; 87088; 87186; 87641; 93005; 93307; 96365; 96366; 96367; 96376; 99285; A9270-GY; J0282; J0696; J1160; J3475; J3490; J7040